=== PATIENT | female | born 1965 | race Caucasian/White ===

== ENCOUNTER → 2017-12-30 | Outpatient (CLI) | payer OTHER ==
--- NOTE | 2017-12-30 13:23 | KCIC ---
MRI Cervical Spine Without Contrast History: Cervical radiculopathy for about 1.5 weeks, numbness in the right arm, abnormal CT Technique: Multiplanar, multi sequential noncontrast MR imaging was performed of the cervical spine. Comparison: None other than CT cervical spine exam January 08, 2018 Findings: There is again fairly advanced degenerative disc disease at C5-C6 and to a somewhat lesser degree at C4-5 and C6-7. There is mild reversal of the lordotic curvature centered about C5. There is again minimal grade 1 anterior spondylolisthesis at C4-C5, C7-T1, and T1-T2. Cervical cord caliber is within normal limits without focal signal abnormality. There is mild C5-C6 endplate edema. There is no significant abnormality of the cervical medullary junction. C2-C3: Spinal canal and neural foramina are adequate. C3-C4: Neural foramina and spinal canal are adequate. There is bilateral facet degenerative change somewhat greater on the left. C4-C5: There is fairly severe facet degenerative change greater on the right. There is minimal disc osteophyte complex. The central canal is borderline about 10 mm. There is uncovertebral degenerative change greater on the right. There is severe right and moderate left neural foramina compromise. C5-C6: There is broad posterior disc osteophyte complex and bulge, central canal minimally narrowed to about 9 to 10 mm also with mild lateral recess stenosis somewhat greater on the right. There is uncovertebral degenerative change bilaterally, also facet degenerative change. There is severe neural foramina compromise bilaterally. C6-C7: There is minimal disc osteophyte complex. Central canal is adequate about 11 mm. There is minimal uncovertebral degenerative change, also bilateral facet degenerative change. There is very mild narrowing of the left neural foramen, right neural foramen adequate. C7-T1: Spinal canal and neural foramina are adequate. Impression: 1. There is more advanced degenerative disc disease at C5-C6 and to a somewhat lesser degree C4-5 and C6-7 with spondylosis at the same levels. There is mild spinal stenosis C5-C6. 2. Uncovertebral and facet degenerative change contributes to more significant neural foramina compromise bilaterally at C5-C6 and right greater than left at C4-C5. 3. There is minimal grade 1 anterior spondylolisthesis C4-5, C7-T1, T1-T2. There is multilevel facet degenerative change. Electronically signed by: Aurelio Cortes MD (12/30/2017 1:20 PM) [facility]
== END | disposition home or self-care (01) ==
LOC: KCIC MRI 12:27
PROVIDERS: ATTEND Internal Medicine
DX: M50.323 Other cervical disc degeneration at C6-C7 level (principal); M47.892 Other spondylosis, cervical region; M48.02 Spinal stenosis, cervical region; M43.13 Spondylolisthesis, cervicothoracic region; M25.78 Osteophyte, vertebrae
CPT/HCPCS: 72141

== ENCOUNTER → 2018-01-30 | Outpatient (CLI) | payer OTHER ==
[~2018-01-30] MED LIST: ALPR0.5T PO; ARIP5TAB13 PO; DEXT10TA23 PO; DULO60CA6 PO; IOHEXOL 180 MG/ML 10 ML VIAL. ONE; LIDOCAINE 1% PF 2 ML VIAL. ONE; MIRT15TA PO; NAPR220C4 PO; methylPREDNISolone ACETATE 40 MG/ML VIAL. ONE; methylPREDNISolone ACETATE 80 MG/ML VIAL. ONE
--- NOTE | 2018-01-30 16:08 | PAIN ---
DATE OF SERVICE: 01/30/2018 INITIAL CONSULTATION FOR PAIN CLINIC CHIEF COMPLAINT: Neck and right upper extremity pain. HISTORY OF PRESENT ILLNESS: This is a 52-year-old female who presents with history of pain in the patient's neck and right shoulder without any specific injury or accident, just woke up numb with it in December of this year with difficulty moving the arm. The patient reports it has gotten better since then, but still having significant pain in the right upper extremity as well as the base of the neck after some therapeutic exercises got slightly better. The patient reports still significant in the neck, also dropping things with the right hand. The right is her dominant hand. The patient reports no specific injury or action that she is aware of. Describes the pain as constant, changing, tingling and numbness, radiating to the right hand and arm as well as a cold sensation in the right hand. The patient reports it wakes her from sleep about 2-3 times a night, does not affect her bowel or bladder control or ability to walk or get around, but at work is having difficulty writing as well as doing fine motor functions with the right hand. The patient did have an MRI of the cervical spine showing more advanced degenerative disk disease C5-C6 and is somewhat lesser degree C4-C5 and C6-C7 with spondylosis at the same levels, mild spinal stenosis C5-C6, degenerative changes, more significant neural foraminal compromise bilaterally at C5-C6 and right greater than left at C4-C5. The patient rates her disability rating from 0 to 10, 10 being the worst, is a 6 with family and home responsibilities and recreation, 4 with social activity, occupation, 3 with sexual behavior, self care and life support activities. The patient reports no loss of motor function completely, but significant fatigability, once again in the right upper extremity with most all motion, especially fine motor. PAST MEDICAL HISTORY: Significant for hearing loss in the right ear, gastroesophageal reflux, difficulty swallowing, depression, anxiety, attention deficit disorder. PREVIOUS SURGERY: Includes tubal in 1992, right breast biopsy and LASIK procedure in 2000. CURRENT MEDICATIONS: Include Xanax, Remeron, Abilify, Cymbalta, Adderall and Aleve. ALLERGIES: The patient has no known drug allergies. FAMILY HISTORY: Significant for lymphoma, coronary artery disease, hypertension, depression, anxiety. SOCIAL HISTORY: The patient drinks about 2-3 drinks a week on average, does not smoke, does not use any illegal, illicit or recreational drugs. 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 REVIEW OF SYSTEMS: The patient's review of systems is positive for those items mentioned in history of present illness. All systems reviewed, is negative. It is complete, full and well documented on the patient's chart. PHYSICAL EXAMINATION: VITAL SIGNS: The patient's blood pressure 146/99, pulse 76, respirations 16, temperature 98.1 degrees Fahrenheit, height is 5 feet 5 inches, weight 162 pounds. GENERAL: The patient is awake, alert, oriented, appropriate, very pleasant demeanor. HEENT: Head shows normocephalic, atraumatic. Extraocular movements intact and symmetrical. Oral cavity: Mucous membranes moist and pink. Dentition is intact. NECK: Shows anterior throat supple without palpable lymphadenopathy noted. Swallow reflex symmetrical. CHEST: Shows normal with inspection. Breath sounds are clear to auscultation bilaterally. HEART: Shows S1, S2 clear. No murmurs auscultated. ABDOMEN: Soft, nontender, nondistended. No palpable organomegaly is noted. No rebound or guarding demonstrated. BACK: Shows spine grossly in the midline, normal-appearing cervical lordotic curvature, thoracic kyphotic curvature. Cervical paraspinous muscle shows symmetrical on inspection, with palpation shows some moderate tenderness only diffusely in the inferior aspect of the cervical paraspinous muscles bilaterally, slightly worse on the right than the left and the superior medial trapezius, without trigger points, no radiation. The patient has full rotational motion of cervical spine, both laterally greater than 45 degrees right and left, closer to 90 degrees as well as full extension, full forward flexion without significant pain reported. The patient's upper extremities show deep tendon reflexes at 2+ in the biceps, triceps tendons. Motor exam is approximately 4 on a scale of 5 with right rickshaw driver and 5/5 on the left. Bicep and tricep flexion again 4/5 right, 5/5 on the left. Peripheral pulses are 2+ radial distribution. No peripheral edema is noted. Upper extremities are warm and dry to touch, equal in color and appearance. Shoulder shrug is strong and intact without loss of strength or resistance, some mild pain reported in the base of the neck and shoulder on the right side with resistance. This is true with abduction of the shoulders at 90 degrees as well, again without loss of strength, but with pain reported on the right only. IMPRESSION: 1. This is a 52-year-old female with approximately 2-month history of neck pain, right upper extremity pain in a radicular fashion. 2. MRI scan of cervical spine as noted. 3. Depression and anxiety history. 4. Gastroesophageal reflux. PLAN: Options were discussed with the patient including conservative medical management, physical therapy, interventional techniques. She does some stretching and therapies on her own. She would like to pursue interventional techniques. We discussed cervical epidural steroid injection using description as well as anatomic models to describe the procedure. Risks were then discussed including, but not limited to bleeding, infection, possibility of epidural hematoma and subsequent neurological compromise, dural puncture, headaches, spinal cord and/or nerve damage, side effects of steroid medication and poor results regarding pain control. The patient understands and wished to proceed. The patient to return to clinic in approximately 2 weeks for followup, was counseled on return appointment, activity level and side effects to be aware of. DIAGNOSES: Cervical radiculopathy, cervical spinal stenosis and cervical degenerative disk disease. PROCEDURE: Cervical epidural steroid injection, translaminar approach C6-C7 level using C-arm fluoroscopic guidance under sterile prep and drape using local anesthetic. MEDICATIONS INJECTED: A total of 120 mg Depo-Medrol, plus 5 mL of preservative free normal saline, 2 mL Isovue for contrast. CONDITION AT DISCHARGE: Stable. The patient tolerated the procedure well, had no complications. GISSEL RICHARDSON MD DR: IRADIA/corine JOB#: [id number] / [id number] JERAMY Burgess MD
== END | disposition home or self-care (01) ==
LOC: PNCL 08:01
PROVIDERS: ATTEND Anesthesiology
DX: M50.123 Cervical disc disorder at C6-C7 level with radiculopathy (principal); M48.02 Spinal stenosis, cervical region; F41.9 Anxiety disorder, unspecified; F32.9 Major depressive disorder, single episode, unspecified; K21.9 Gastro-esophageal reflux disease without esophagitis; H91.91 Unspecified hearing loss, right ear; F98.8 Other specified behavioral and emotional disorders with onset usually occurring in childhood and adolescence; Z98.890 Other specified postprocedural states; Z79.899 Other long term (current) drug therapy; Z82.49 Family history of ischemic heart disease and other diseases of the circulatory system; Z81.8 Family history of other mental and behavioral disorders; Z72.89 Other problems related to lifestyle
CPT/HCPCS: 62321; J1030; J1040; Q9965

== ENCOUNTER → 2018-02-27 | Outpatient (CLI) | payer OTHER ==
[~2018-02-27] MED LIST changes: +LEVO50TA5 PO; -LIDOCAINE 1% PF 2 ML VIAL. ONE
--- NOTE | 2018-02-27 21:02 | PAIN ---
DATE OF SERVICE: 02/27/2018 PROGRESS NOTE FOR PAIN CLINIC DIAGNOSES: Cervical radiculopathy with cervical degenerative disk disease and cervical spinal stenosis. HISTORY OF PRESENT ILLNESS: The patient is a 52-year-old female who returns for followup status post cervical epidural steroid injection x 1. The patient reports she did very well initially, but the pain is returning now significantly in the face and neck and right upper extremity. The patient reports she was able to travel with better ease and was doing activities at work as well as at home with greater ability and comfort. The patient reports now the pain is returning in the right upper extremity, mostly in the posterior aspect of the shoulder, posterior triceps, medial arm into the medial forearm and into the fingers with aching, dull, tingling sensation, becoming more constant with time. The patient reports no new motor or sensory deficits or other complaints. Reports her pain as a 5 on a scale of 10 at its worst, 3 on average, 3 at its least and is a 3 today. PHYSICAL EXAMINATION: VITAL SIGNS: The patient's blood pressure is 149/95, pulse 81, respirations are 16 and temperature 98.2 degrees Fahrenheit. Weight is 173 pounds. GENERAL: The patient is awake, alert, oriented, appropriate and very pleasant demeanor. HEENT: Shows normocephalic and atraumatic. Extraocular movements are intact and symmetrical. Oral cavity: Mucous membranes are moist and pink. Dentition is intact. NECK: Shows anterior throat supple without palpable lymphadenopathy noted. Swallow reflex symmetrical. CHEST: Shows normal on inspection. Breath sounds clear to auscultation bilaterally. HEART: Shows S1 and S2 clear. No murmurs auscultated. ABDOMEN: Soft, nontender and nondistended. No palpable organomegaly is noted. No rebound or guarding demonstrated. BACK: Shows spine grossly in the midline, normal appearing cervical lordotic curvature, thoracic kyphotic curvature. Cervical paraspinous muscle shows symmetrical on inspection. On palpation shows some moderate tenderness diffusely bilaterally in the middle and lower distribution of the cervical paraspinous musculature without radiation. The patient has good rotational motion both laterally as well as extension and flexion without difficulty. The patient's neck shows good rotational motion both laterally as well as forward flexion, rearward extension, right and left lateral rotation past 45 degrees without significant pain reported. EXTREMITIES: Upper extremities show deep tendon reflexes at 2+ in the biceps, triceps tendons. Motor exam is approximately 4 on a scale of 5 with right food consultant strength and 5/5 on the left. Bicep and tricep flexion likewise 4/5 right, 5/5 on the left. Peripheral pulses are 2+ in the radial distribution bilaterally. Options were discussed with the patient. The patient's old chart was reviewed as well as her current medication regimen updated. Current review of systems updated today as well. We will proceed with a second cervical epidural steroid injection series with fluoroscopic guidance. Risks were again discussed including, but not limited to bleeding, infection, possibility of epidural hematoma and subsequent neurological compromise, dural puncture, headaches, spinal cord and/or nerve damage, side effects of steroid medication and poor results regarding pain control. The patient understands and wished to proceed. The patient will return to the clinic in approximately 2 weeks for followup, was counseled as to return appointment, activity level and side effects to be aware of. DIAGNOSES: Cervical radiculopathy with cervical degenerative disk disease and cervical spinal stenosis. PROCEDURE: Cervical epidural steroid injection, translaminar approach, C6-C7 level using C-arm fluoroscopic guidance under sterile prep and drape using local anesthetic. MEDICATION INJECTED: A total of 120 mg Depo-Medrol plus 5 mL of preservative-free normal saline and 2 mL of Isovue for contrast. CONDITION AT DISCHARGE: Stable. The patient tolerated procedure well and had no complications. GISSEL RICHARDSON MD DR: IRAIDA/corine JOB#: [id number] / [id number]
== END | disposition home or self-care (01) ==
LOC: PNCL 14:21
PROVIDERS: ATTEND Anesthesiology
DX: M50.123 Cervical disc disorder at C6-C7 level with radiculopathy (principal); M48.02 Spinal stenosis, cervical region
CPT/HCPCS: 62321; J1030; J1040; Q9965

== ENCOUNTER → 2018-06-19 | Outpatient (CLI) | payer OTHER ==
[~2018-06-19] MED LIST changes: +BUPR150T15 PO; +DOCU-109 PO; +HYDR-2761 PO; -IOHEXOL 180 MG/ML 10 ML VIAL. ONE; +METH750T2 PO; +MULT1TAB52 PO; +NAPR-695 PO; -methylPREDNISolone ACETATE 40 MG/ML VIAL. ONE; -methylPREDNISolone ACETATE 80 MG/ML VIAL. ONE
[2018-06-19 16:46] LABS: BASO % 1 % (0-3); EOS % 0 % (0-3); HEMATOCRIT 42.5 % (36.0-47.0); HEMOGLOBIN 13.9 g/dL (12.0-15.5); LYMPH # 1.4 x10^3/uL (1.0-4.8); LYMPH % 23 % (24-48); MEAN CORPUSCULAR HEMOGLOBIN 29 pg (25-35); MEAN CORPUSCULAR HGB CONC 33 g/dL (31-37); MEAN CORPUSCULAR VOLUME 90 fL (79-100); MONO # 0.6 x10^3/uL (0.0-1.1); MONO % 10 % (0-9); NEUT # 4.1 x10^3uL (1.8-7.7); NEUT % 67 % (31-73); PLATELET COUNT 187 x10^3/uL (140-400); RED BLOOD COUNT 4.71 x10^6/uL (3.50-5.40); RED CELL DISTRIBUTION WIDTH 13.4 % (11.5-14.5); WHITE BLOOD COUNT 6.1 x10^3/uL (4.0-11.0)
[2018-06-19 17:29] LABS: ALBUMIN 3.5 g/dL (3.4-5.0); CALCIUM 8.7 mg/dL (8.5-10.1); CREATININE 0.8 mg/dL (0.6-1.0); GFR 75.3; TOTAL BILIRUBIN 0.3 mg/dL (0.2-1.0); TOTAL PROTEIN 6.9 g/dL (6.4-8.2)
== END | disposition home or self-care (01) ==
LOC: SURGPAT 13:25
PROVIDERS: ATTEND Neurological Surgery
DX: M48.02 Spinal stenosis, cervical region (principal); M54.12 Radiculopathy, cervical region
CPT/HCPCS: 36415; 80053; 85025; 87641

== ENCOUNTER 2018-06-26 07:01 | Observation (INO) | payer OTHER ==
[~2018-06-26] VITALS: Ht 165.1 cm; Wt 71.2 kg
[2018-06-26] VITALS (11 sets, daily range): BP systolic 109–130; BP diastolic 70–88
[~2018-06-26 07:01] MED LIST changes: +BACITRACIN 50,000 UNIT in IV NORMAL SALINE 1000ML BAG 1,000 ML IRR ONE; +BUPIVAC MPF-EPI 0.5%-1:200000 30 ML VIAL. ONE; +DESFLURANE > 120 MINUTES IH ONE; +DEXAMETHASONE SOD PHOS 20 MG/5 ML VIAL. ONE; -DOCU-109 PO; +GELATIN SPONGE SIZE 100. ONE; -HYDR-2761 PO; +HYDROmorphone 2 MG/ML VIAL IV PRN; +IV RINGERS,LACTATED 1000ML 1,000 ML IV SCH; +LIDOCAINE 1% PF 2 ML VIAL. ID PRN; -METH750T2 PO; +MORPHINE SULFATE 2 MG/ML VIAL. IV PRN; +ONDANSETRON PF 4 MG/2 ML VIAL. IV PRN; +ONDANSETRON PF 4 MG/2 ML VIAL. ONE; +PHENYLEPHRINE 10 MG/ML VIAL. ONE; +PROCHLORPERAZINE 10 MG/2 ML VIAL. IV PRN; +PROPOFOL 20 ML IV ONE; +PROPOFOL 50 ML IV ONE; +REMIFENTANIL 2 MG VIAL. IV ONE; +ROCURONIUM 50 MG/5 ML VIAL. ONE; +THROMBIN TOPICAL 20,000 UNIT SPRAY.SYRN KIT TP ONE; +fentaNYL PF VIAL 100 MCG/2 ML VIAL IV PRN; +fentaNYL PF VIAL 100 MCG/2 ML VIAL ONE
[2018-06-26] MEDS ORDERED: SUCCINYLCHOLINE 200 MG/10 ML VIAL. ONE (07:43)
--- NOTE | 2018-06-26 09:58 | PREOP HP ---
DATE OF SERVICE: 06/26/2018 DATE OF SURGERY: 06/26/2018 HISTORY OF PRESENT ILLNESS: The patient is a pleasant 52-year-old who is having difficulty with neck and right arm pain. She says the pain is in the right side of her neck and radiates into her right shoulder to involve the right arm and right hand. She notes numbness and tingling in her right hand. There is numbness that involves the thumb, index, middle and ring fingers. The problem started in 12/2017 spontaneously. She says her pain is an 8/10 in the mornings and is 3/10 generally. Lying down makes her worse. Using her right arm and hand also increases her pain. She has had some epidural steroid injections without benefit in February and March. She had physical therapy with traction without help. Physical therapy just stopped last week. On the left side, she notes some numbness of her left hand. The right side is much more involved than the left. PAST MEDICAL HISTORY: Head or neck injury, psychiatric care and ulcers. PAST SURGICAL HISTORY: Ectopic in 1982, breast biopsy in 2013, LASIK surgery in 1999. FAMILY HISTORY: Cancer, heart problems and disease, hypertension. SOCIAL HISTORY: Employed as an RN. Exercises weekly. Denies substance abuse. Quit smoking 2 weeks ago. Drinks 1-2 drinks per week. Drinks soda. ALLERGIES: No known drug allergies. CURRENT MEDICATIONS: Adderall, Cymbalta, Xanax, gabapentin, Flexeril, hydrocodone, Skelaxin, prednisone, Aleve, Zyrtec, One A Day vitamin and Zantac. REVIEW OF SYSTEMS: A 12-point review of systems was obtained and is noncontributory except for that mentioned above. PHYSICAL EXAMINATION: NEUROSURGERY EXAMINATION: HEAD: Normocephalic and atraumatic. NECK AND THYROID: [id number] tenderness with palpation of posterior cervical region. SKIN: Warm and dry. MUSCULOSKELETAL: Cervical paraspinal muscle bulk is normal, restricted range of motion of the cervical spine, normal range of motion of the upper extremities bilaterally. EXTREMITIES: No clubbing, cyanosis or edema. NEUROLOGIC: Alert and oriented x 3, normal recent and remote memory. Strength 5/5 in bilateral lower extremities, sensory was intact to light touch in the upper and lower extremities except for decreased involving her right hand and diffusely to light touch. Reflexes are trace and symmetric in the upper and lower extremities bilaterally, normal gait. IMAGING: I reviewed an MRI scan from 12/2017. On that study, there are significant degenerative changes at C5-C6 with lateral recess stenosis and severe neural foraminal narrowing bilaterally. At C4-C5, there is severe right and moderate left-sided neural foraminal narrowing. ASSESSMENT AND PLAN: I believe the problems at C4-C5 and C5-C6 are responsible for a great deal of her arm pain. My recommendation at this point is that she consider surgery. I discussed anterior cervical surgery at C4-C5 and C5-C6. I spoke about the use of interbody fusion cages and anterior plating. I spoke about the technique in detail, expected postoperative course. I outlined the risks and she was well aware of these from her own research. I spoke about paralysis as well as injury to the esophagus and trachea. We also discussed possibility of hoarseness. I spoke about expected postoperative course. She understands. She would like to go ahead. We will make the arrangements. DEUCE JOSE MD DR: RAMONA/corine JOB#: [id number] / [id number] VIKTOR
[2018-06-26] MEDS ORDERED: PROPOFOL 50 ML IV ONE (10:22)
[2018-06-26] MEDS ORDERED: LIDOCAINE 2% PF 5 ML VIAL. ONE (10:23)
[2018-06-26] MEDS ORDERED: POTASSIUM CL 20MEQ D5-0.45NACL 1,000 ML IV SCH (10:55)
[2018-06-26] MEDS ORDERED: ONDANSETRON PF 4 MG/2 ML VIAL. IV PRN (11:00)
[2018-06-26] MEDS ORDERED: ACETAMINOPHEN 325 MG TABLET. PO PRN (11:00)
[2018-06-26] MEDS ORDERED: 0.9 % SODIUM CHLORIDE 10 ML DISP.SYRIN. IV PRN (11:00)
[2018-06-26] MEDS ORDERED: CALCIUM CARBONATE 500 MG TAB.CHEW PO PRN (11:00)
[2018-06-26] MEDS ORDERED: diphenhydrAMINE HCL 25 MG CAPSULE PO PRN (11:00)
[2018-06-26] MEDS: MULTIVITAMIN with MINERAL TABLET. PO SCH (11:00)
[2018-06-26] MEDS: DOCUSATE SODIUM 100 MG CAPSULE. PO SCH ×2 (11:00→21:11)
[2018-06-26] MEDS ORDERED: MAGNESIUM HYDROXIDE 2,400 MG/30 ML ORAL.SUSP. PO PRN (11:00)
[2018-06-26] MEDS ORDERED: ZOLPIDEM 5 MG TABLET. PO PRN (11:00)
[2018-06-26] MEDS ORDERED: MAG HYDROX/ALUMINUM HYD/SIMETH 30 ML ORAL.SUSP PO PRN (11:00)
[2018-06-26] MEDS: DULoxetine HCL 30 MG CAPSULE.DR PO SCH (11:00)
[2018-06-26] MEDS: buPROPion XL 150 MG TAB.ER.24H. PO SCH (11:00)
[2018-06-26] MEDS ORDERED: NALOXONE 0.4 MG/ML VIAL. IV PRN (11:00)
--- NOTE | 2018-06-26 12:15 | OP ---
DATE OF SURGERY: 06/26/2018 PREOPERATIVE DIAGNOSES: Cervical stenosis and foraminal narrowing, C4-C5 and C5-C6 with a right cervical radiculopathy. POSTOPERATIVE DIAGNOSES: Cervical stenosis and foraminal narrowing, C4-C5 and C5-C6 with a right cervical radiculopathy. OPERATION PERFORMED: Anterior cervical microdiscectomy, C4-C5 and C5-C6; anterior cervical interbody fusion, C4-C5 and C5-C6 with interbody fusion cage with allograft and autograft bone and anterior cervical plates, C4, C5 and C6. The operation was done with EMG monitoring, fluoroscopy and microscopic dissection. SURGEON: Arnold Jose M.D. SAFETY INVESTIGATOR: RICHARD Rios, assisted with the surgery. She assisted with the microdecompression and placement of the interbody fusion cages at C4-C5 and C5-C6. OPERATIVE INDICATIONS: The patient is a pleasant 52-year-old who developed intractable neck and right arm pain, which failed conservative measures. On imaging studies, she was found to have lateral recess stenosis and foraminal narrowing at C5-C6 and to a lesser extent at C4-C5 along with an element of stenosis at both of these levels and I recommended a 2-level anterior cervical discectomy and fusion. I spoke to her about the surgery, the risks, the technique and the expected postoperative course and she wished to go ahead. DESCRIPTION OF PROCEDURE: Following general endotracheal anesthesia, the patient was positioned supine on the operating room table. The anterior cervical region was then prepped and draped in standard fashion. SHEA hose and AV impulse boots were applied for DVT prophylaxis. A microscope was draped. Fluoroscopy was draped and brought into the field and monitoring was established, which included EMG, SSEP, NIMS and motor evoked potentials. Fluoroscopy was also brought in as well as the microscope, which was draped and prepared. Using fluoroscopic guidance, an incision was made from the midline around to the right side in a skin crease. I dissected around the medial aspect of the sternocleidomastoid and carotid artery sheath down the anterior cervical vertebral body and reflected the trachea and esophagus contralaterally. I placed a [place] micro disc retractor with the retractors wedged in the longus colli muscle. There was a narrow space anteriorly, but I was able to move the muscle slightly laterally and obtain adequate exposure. I began at C5-C6 and confirmed my positions. Then, I placed 14-mm pins in C5 and C6 and incised the anterior annulus again through the microscope under microscopic technique and distracted it after incising with a #11 blade. I distracted and then performed a discectomy with pituitary rongeurs. As I worked, the region became well decompressed. I drilled the posterior spurring and the anterior spurring and I saved this bone to mix with the allograft bone for the fusion. I had excellent hemostasis. I removed the very thickened posterior annulus and ligament. Then, I made sure the foramina were open. I placed a 6-mm interbody fusion cage, which was packed with allograft and autograft bone, after I assured myself of perfect hemostasis and placed small pieces of Gelfoam in each lateral gutter. I then removed the pin from C6 and removed the retractor at C4-C5, placed a pin in C4, distracted the disc space and I then performed the identical operation at C4-C5. At this level, there was considerable arthritic change. I again drilled the posterior spurring and opened laterally bilaterally. I was easily able to pass a blunt hook out laterally. I measured and placed a 6 mm interbody fusion cage, which was packed with allograft and autograft bone after I assured myself of perfect hemostasis. Once this was in position, I placed an anterior plate using the Spinal Element System. I placed 12-mm screws. Superior and inferior screws were placed first, followed by the remaining screws. I did use a rescue screw on the left side at C4, but there was no significant difficulty with placement of the plate. Once the plate was down, I took films and felt that the positioning was satisfactory. I irrigated copiously. Hemostasis was excellent. I removed the retractors and explored carefully. The motor-evoked potentials were excellent and in fact improved. I then irrigated further, again assured myself of perfect hemostasis and did Valsalva the patient without any difficulty and then I closed the platysma with separate layer. I then closed the wound in layers with absorbable suture. The skin was closed with 4-0 subcuticular stitch. The operation went very well. I was quite pleased with the surgery. ARNOLD JOSE MD DR: RAMONA/corine JOB#: [id number] / [id number] VIKTOR
[2018-06-26] MEDS: fentaNYL PF VIAL 100 MCG/2 ML VIAL IV PRN ×2 (13:06→19:31)
[2018-06-26] MEDS: LEVOTHYROXINE 50 MCG TABLET PO SCH (15:30)
[2018-06-26] MEDS: ceFAZolin SODIUM 1 GM in IV DEXTROSE 5% 50 ML IV SCH (16:54)
[2018-06-26] MEDS: HYDROcodone/APAP 5/325MG 1 TAB TABLET PO PRN ×2 (16:57→23:09)
[2018-06-26] MEDS ORDERED: ALPRAZolam 0.5 MG TABLET PO SCH (21:00)
[2018-06-26] MEDS: METHOCARBAMOL 750 MG TABLET PO PRN (21:13)
[2018-06-27] MEDS: ceFAZolin SODIUM 1 GM in IV DEXTROSE 5% 50 ML IV SCH ×2 (02:15→08:55)
[2018-06-27 02:54] VITALS: BP 102/63
[2018-06-27] MEDS: LEVOTHYROXINE 50 MCG TABLET PO SCH (06:21)
[2018-06-27] MEDS: HYDROcodone/APAP 5/325MG 1 TAB TABLET PO PRN ×4 (06:22→10:50)
[2018-06-27 06:31] VITALS: BP 124/86
[2018-06-27] MEDS ORDERED: BENZOCAINE/MENTHOL LOZENGE. PO PRN (07:45)
[2018-06-27] MEDS: buPROPion XL 150 MG TAB.ER.24H. PO SCH (08:06)
[2018-06-27] MEDS: DULoxetine HCL 30 MG CAPSULE.DR PO SCH (08:06)
[2018-06-27] MEDS: DOCUSATE SODIUM 100 MG CAPSULE. PO SCH (08:06)
[2018-06-27] MEDS: MULTIVITAMIN with MINERAL TABLET. PO SCH (08:55)
[2018-06-27] MEDS ORDERED: NON FORMULARY ITEM (Dextroamphetamine/Amphetamine (Adderall 10 Mg Tablet) 10 MG) PO SCH (09:00)
--- NOTE | 2018-06-27 09:45 | DISCH ---
DISCHARGE INSTRUCTIONS Condition on Discharge Condition on Discharge: Stable Activity After Discharge Activity Instructions for Disc: Activity as tolerated, Avoid exertion, Walk in house Other activity instructions: AMBULATION IS THE ONLY EXERCISE PERMITTED; GRAD INCREASE TIME AND DISTANCE Bathing Instructions: Shower-keep dressing dry, No Tub Bath until see Lifting Instructions after Dis: No heavy lifting, No pulling or pushing, Do not lift >10 pounds Exercise Instruction after Dis: Progress as tolerated Driving Instructions after Dis: No driving for 2 weeks Weight Bearing Status after Di: No restrictions Diet after Discharge Diet after Discharge: Regular Additional Diet Restrictions: resume home diet Diet Texture: Regular Liquid Texture: Thin Liquid Swallowing Supervision: None needed Wound Incision Care Wound/Incision Care: Ice to area for comfort, Keep wound/cast CDI, Change dressing Other wound/incision instructi: MAY REMOVE DRESSING AFTER SHOWER; NO DIRECT WATER, TUB BATHS, HOT TUBS SWIM Wound Care Equipment: Dressings Checks after Discharge DC Comment: INCREASE FRUITS, VEGETABLES AND FIBER; ATTEMPT bm Q 2-3 DAYS Contacting the DRChristoph after DC Call your doctor for: Concerns you may have Follow-Up Follow Up With: CALL [phone] FOR A 2 W[address] POST APPT WITH DR. JOSE/ ABHISHEK Treatment/Equipment after DC Adaptive Equipment Issued: None Comment: NO ANTIBIOTIC CREAM/OINTMENT TO INCISION DEUCE JOSE MD Jun 27, 2018 09:45
[2018-06-27] MEDS ORDERED: DOCU-109 PO (09:49)
[2018-06-27] MEDS ORDERED: HYDR-2761 PO (09:49)
[2018-06-27] MEDS ORDERED: METH750T2 PO (09:49)
[2018-06-27 10:45] VITALS: BP 129/86
[2018-06-27] MEDS: METHOCARBAMOL 750 MG TABLET PO PRN (10:48)
--- NOTE | 2018-06-27 12:31 | DS ---
DATE OF DISCHARGE: 06/27/2018 DISCHARGE DIAGNOSES: Cervical stenosis and foraminal narrowing, C4-C5 and C5-C6 with right cervical radiculopathy. OPERATION PERFORMED: ACDF C4-C5, C5-C6. HISTORY OF PRESENT ILLNESS: The patient is a pleasant 52-year-old who developed intractable neck and right arm pain, which failed to improve with conservative measures. On imaging studies, she was found to have lateral recess stenosis and foraminal narrowing at C5-C6 and to a lesser extent at C4-C5 along with an element of stenosis at both of these levels. I have recommended a 2-level anterior cervical diskectomy and fusion. She understood the surgery, the risk and the expected postoperative course and wished to proceed. HOSPITAL COURSE: She was admitted to the floor postoperatively where she did well. She was up ambulating in the room and in the halls. Physical therapy was initiated and instruction was given her regarding her activities. She has noted significant improvement in her right upper extremity symptoms. Her voice is clear. Her pain is well controlled. She is at good condition to discharge home. DISCHARGE MEDICATIONS: She will resume her medications per the MRAD. DISCHARGE INSTRUCTIONS: She was instructed regarding incision care, activity restrictions and expectations for the next several weeks. She will follow up in our office in 2 weeks. She understands to call with any questions or concerns. DEUCE JOSE MD DR: MANSI/corine JOB#: [id number] / [id number]
--- NOTE | 2018-06-28 09:09 | PATHOLOGY ---
[facility] Accession Number: [id number] . 01 Material submitted: . CERVICAL DISC . 01 Clinical history: . Cervical stenosis, radiculopathy . 02 Diagnosis: Segments of fibrocartilaginous tissue and bone, cervical disc: - Degenerative changes of fibrocartilaginous tissue. (JPM:manager animal; 06/27/2018) MBR/06/27/2018 . 02 Comment: There is no evidence of an acute inflammatory process or malignancy. (JPM:manager animal; 06/27/2018) . 02 Electronically signed: . Manpreet Bejarano MD, Pathologist NPI- [id number] . 01 Gross description: . Received in formalin labeled "Ernestina Flores, cervical disc," are several pieces of glistening, fibrous tissue measuring 2.5 x 1.3 x 0.6 cm in aggregate dimensions, containing small fragments of possible bone. The specimen is filtered and entirely submitted cassette A1, following decalcification. (TSD; 06/26/2018) TOB/TOB . 02 Pathologist provided ICD-10: M50.30 . 02 CPT . 732353, [id number] Specimen Comment: A courtesy copy of this report has been sent to Specimen Comment: [phone], . Specimen Comment: Report sent to / DR BELL Specimen Comment: A duplicate report has been generated due to demographic updates. Performed at: 01 [facility] [address], [place] [id number] MD Ld Martel MD Phone: [phone] Performed at: 02 [facility] [address], [place] [id number] MD Manpreet Bejarano MD Phone: [phone]
== END 2018-06-27 11:06 | disposition home or self-care (01) ==
LOC: SURG 07:01 → 4 SOUTHEST 12:20
PROVIDERS: ADMIT Neurological Surgery; ATTEND Neurological Surgery
DX: M54.12 Radiculopathy, cervical region (principal); Z82.49 Family history of ischemic heart disease and other diseases of the circulatory system; M48.02 Spinal stenosis, cervical region
CPT/HCPCS: 22551; 22552; 22853; 76000; 88304; 88311; 96365; 96366; 96375; 96376; 97162; 97530; C1713; G0378; G0379; G8978; G8979; G8980; J0330; J0690; J1100; J2001; J2405; J2704; J3010; J3490; J7030; J7120; Q0163

== ENCOUNTER → 2019-07-16 | Outpatient (CLI) | payer OTHER ==
[~2019-07-16] MED LIST changes: -BACITRACIN 50,000 UNIT in IV NORMAL SALINE 1000ML BAG 1,000 ML IRR ONE; -BUPIVAC MPF-EPI 0.5%-1:200000 30 ML VIAL. ONE; -DESFLURANE > 120 MINUTES IH ONE; -DEXAMETHASONE SOD PHOS 20 MG/5 ML VIAL. ONE; +DOCU-109 PO; -GELATIN SPONGE SIZE 100. ONE; +HYDR-2761 PO; -HYDROmorphone 2 MG/ML VIAL IV PRN; -IV RINGERS,LACTATED 1000ML 1,000 ML IV SCH; -LIDOCAINE 1% PF 2 ML VIAL. ID PRN; +METH750T2 PO; -MORPHINE SULFATE 2 MG/ML VIAL. IV PRN; -ONDANSETRON PF 4 MG/2 ML VIAL. IV PRN; -ONDANSETRON PF 4 MG/2 ML VIAL. ONE; -PHENYLEPHRINE 10 MG/ML VIAL. ONE; -PROCHLORPERAZINE 10 MG/2 ML VIAL. IV PRN; -PROPOFOL 20 ML IV ONE; -PROPOFOL 50 ML IV ONE; -REMIFENTANIL 2 MG VIAL. IV ONE; -ROCURONIUM 50 MG/5 ML VIAL. ONE; -THROMBIN TOPICAL 20,000 UNIT SPRAY.SYRN KIT TP ONE; -fentaNYL PF VIAL 100 MCG/2 ML VIAL IV PRN; -fentaNYL PF VIAL 100 MCG/2 ML VIAL ONE
== END ==
LOC: LAB 13:41
PROVIDERS: ATTEND Internal Medicine Pulmonary Disease
DX: Z20.828 Contact with and (suspected) exposure to other viral communicable diseases (principal)
CPT/HCPCS: 36415; 99001; U0001

== ENCOUNTER 2019-08-24 09:47 | Observation (INO) | payer OTHER ==
[~2019-08-24] VITALS: Ht 165.1 cm; Wt 73.0 kg
[2019-08-24] MEDS ORDERED: IV NORMAL SALINE 1000ML BAG 1,000 ML IV ONE (10:08)
--- NOTE | 2019-08-24 10:14 | PHYS DOC ---
Past Medical History Past Medical History: Anxiety, Depression, Hypertension, Hypothyroid, Other Additional Past Medical Histor: ADD Past Surgical History: Other Additional Past Surgical Histo: ANTERIOR CERVICAL DISSECTION,TUBAL Smoking Status: Former Smoker Alcohol Use: Occasionally General Adult EDM: Chief Complaint: HEADACHE HPI: HPI: PPE Statement: During the patient's care I used an N95 mask, gloves, and face sheild. Patient is a 53 year old F who presents with headache. She reports her headache started on Tuesday. It took greater than 2 hours to become maximal in intensity. It was not sudden in onset. She denies a family history of subarachnoid hemorrhage or brain aneurysms. She developed a temperature yesterday. She was seen by a nurse practitioner in clinic at [facility] who ordered some blood work and discharged her. Her headache comes and goes. No alleviating or exacerbating factors. She took intramuscular Toradol yesterday in clinic which did not seem to alleviate her pain. She has had some neck stiffness. She has a history of neck surgeries but describes neck stiffness that is different and new. Review of systems negative for rash vision changes cough shortness of breath abdominal pain vomiting. All other review of systems negative. ED course: 53-year-old female presented emergency department today with headache and neck stiffness. She reported a fever yesterday but here is afebrile. Head CT is unremarkable. Blood work is unremarkable. Lumbar puncture performed. CSF is clear. CSF findings suggestive of viral meningitis. I initially had ordered acyclovir and sent to HSV test however Dr. Billings asked that I canceled the HSV test and do not get acyclovir given the patient does not have signs or symptoms of encephalitis. We will admit the patient for observation to doctor Jaye hospitalist for further treatment and care. Heart Score: Risk Factors: Risk Factors: DM, Current or recent (<one month) smoker, HTN, HLP, family history of CAD, obesity. Risk Scores: Score 0 - 3: 2.5% MACE over next 6 weeks - Discharge Home Score 4 - 6: 20.3% MACE over next 6 weeks - Admit for Clinical Observation Score 7 - 10: 72.7% MACE over next 6 weeks - Early Invasive Strategies Allergies: Allergies: Allergies Coded Allergies Type Severity Reaction Last Updated Verified No Known Drug Allergies 01/30/18 No Physical Exam: PE: Constitutional: Well developed, well nourished, no acute distress, non-toxic appearance. [] HENT: Normocephalic, atraumatic, bilateral external ears normal, oropharynx moist, no oral exudates, nose normal. [] Eyes: PERRLA, EOMI, conjunctiva normal, no discharge. [] Neck: Patient is able to move her chin to her shoulder bilaterally and reports this is less so than normally. She is able to look up and look down without clear nuchal rigidity. Cardiovascular:Heart rate regular rhythm, no murmur [] Lungs & Thorax: Bilateral breath sounds clear to auscultation [] Abdomen: Bowel sounds normal, soft, no tenderness, no masses, no pulsatile masses. [] Skin: Warm, dry, no erythema, no rash. [] Back: No tenderness, no CVA tenderness. [] Extremities: No tenderness, no cyanosis, no clubbing, ROM intact, no edema. [] Neurologic: Alert and oriented X 3, normal motor function, normal sensory function, no focal deficits noted. [] Psychologic: Affect normal, judgement normal, mood normal. [] Current Patient Data: Vital Signs: Vital Signs Date Time Temp Pulse Resp B/P (MAP) Pulse Ox O2 Delivery O2 Flow Rate FiO2 08/24/19 09:52 99.0 100 18 175/81 (112) 99 Room Air 99.0 EKG: EKG: [] Radiology/Procedures: Radiology/Procedures: [] Course & Med Decision Making: Course & Med Decision Making Pertinent Labs and Imaging studies reviewed. (See chart for details) [] Dragon Disclaimer: Dragon Disclaimer: This electronic medical record was generated, in whole or in part, using a voice recognition dictation system. Departure Departure Impression: Primary Impression: Headache Additional Impression: Viral meningitis Disposition: ADMITTED INPATIENT Admitting Physician: HIMMehdi Condition: STABLE Referrals: FORREST ALDRIDGE MD (PCP) Lumbar Puncture Lumbar Indication: possible meningitis Consent: Consent was obtained Procedure: The patient was placed in the right lateral decubitus position and the appropriate landmarks were identified. The area was prepped and draped in the usual sterile fashion. Anesthesia was obtained using 1 % lido. A spinal needle was inserted at the L4/L5. Opening pressure was 26. The stylet was then replaced and the needle was withdrawn. A sterile dressing was placed over the site and the patient was placed in the supine position. The patient tolerated the procedure well. Complications: none. ESMER WILD MD August 24, 2019 10:14
[2019-08-24] MEDS ORDERED: METOCLOPRAMIDE 10 MG TABLET. PO ONE (10:15)
[2019-08-24] MEDS ORDERED: diphenhydrAMINE 50 MG/ML VIAL IVP ONE (10:15)
[2019-08-24 10:37] LABS: CALCIUM 8.9 mg/dL (8.5-10.1); CREATININE 0.9 mg/dL (0.6-1.0); GFR 65.5; POTASSIUM 3.6 mmol/L (3.5-5.1)
[2019-08-24 10:42] LABS: ALBUMIN 3.8 g/dL (3.4-5.0); ALBUMIN/GLOBULIN RATIO 1.2 (1.0-1.7); TOTAL BILIRUBIN 0.4 mg/dL (0.2-1.0); TOTAL PROTEIN 6.9 g/dL (6.4-8.2)
[2019-08-24 10:43] LABS: BILIRUBIN,URINE NEGATIVE (NEG); CLARITY,URINE CLEAR; COLOR,URINE YELLOW; NITRITE,URINE NEGATIVE (NEG); PH,URINE 7.5 (<5.0-8.0); PROTEIN,URINE NEGATIVE (NEG-TRACE); UROBILINOGEN,URINE 0.2 mg/dL (0.2 mg/dL)
--- NOTE | 2019-08-24 10:51 | RAD ---
CT HEAD WO CONTRAST History: Headache Comparison: None. Technique: Noncontrast CT imaging was performed of the head. Exposure: One or more of the following individualized dose reduction techniques were utilized for this examination: 1. Automated exposure control 2. Adjustment of the mA and/or kV according to patient size 3. Use of iterative reconstruction technique. Findings: No intracranial hemorrhage. No mass effect. No hydrocephalus. Extra-axial spaces are unremarkable. Imaged orbits are unremarkable. Imaged paranasal sinuses and mastoid air cells are clear. No acute calvarial fracture. Impression: 1. No acute intracranial abnormality. Electronically signed by: Syd Bloom DO (08/24/2019 10:48 AM) [id number]
[2019-08-24 10:52] LABS: PREG TEST PT QUAL NEGATIVE (NEG)
[2019-08-24 11:05] LABS: BACTERIA,URINE FEW /HPF (0-FEW); RBC,URINE 0 /HPF (0-2); SQUAMOUS EPITHELIAL CELL,UR MANY /LPF
[2019-08-24 11:16] LABS: BASO % 1 % (0-3); EOS # 0.1 x10^3/uL (0.0-0.7); EOS % 1 % (0-3); HEMOGLOBIN 13.6 g/dL (12.0-15.5); LYMPH # 1.4 x10^3/uL (1.0-4.8); LYMPH % 19 % (24-48); MEAN CORPUSCULAR HEMOGLOBIN 29 pg (25-35); MEAN CORPUSCULAR HGB CONC 33 g/dL (31-37); MEAN CORPUSCULAR VOLUME 89 fL (79-100); MONO # 0.6 x10^3/uL (0.0-1.1); MONO % 8 % (0-9); NEUT # 5.6 x10^3/uL (1.8-7.7); NEUT % 73 % (31-73); PLATELET COUNT 197 x10^3/uL (140-400); RED BLOOD COUNT 4.75 x10^6/uL (3.50-5.40); RED CELL DISTRIBUTION WIDTH 14.2 % (11.5-14.5); WHITE BLOOD COUNT 7.6 x10^3/uL (4.0-11.0)
[2019-08-24] MEDS ORDERED: CYCLOBENZAPRINE 10 MG TABLET. PO ONE (12:45)
[2019-08-24 12:53] LABS: CSF PROTEIN 123.4 mg/dL (15.0-45.0)
[2019-08-24 13:25] LABS: CSF CLARITY CLEAR; CSF COLOR COLORLESS; CSF MON % 98 %; CSF PMN % 2 %; CSF RBC COUNT 3 /cmm (Not Established); CSF WBC COUNT 328 /cmm (Not Established)
[2019-08-24] MEDS ORDERED: IV NORMAL SALINE 1000ML BAG 1,000 ML IV SCH (14:15)
[2019-08-24] MEDS ORDERED: DOCUSATE SODIUM 100 MG CAPSULE. PO PRN (14:30)
[2019-08-24] MEDS ORDERED: MAG HYDROX/ALUMINUM HYD/SIMETH 30 ML ORAL.SUSP PO PRN (14:30)
[2019-08-24] MEDS ORDERED: ACETAMINOPHEN 650 MG/20.3 ML SOLUTION. GT PRN (14:30)
--- NOTE | 2019-08-24 14:44 | PDOC1 ---
History and Physical Date of Admission Date of Admission DATE: 08/24/19 TIME: 14:31 Identification/Chief Complaint Chief Complaint headache, fever Problems: (1) Cervical radiculopathy (2) Headache Source Source: Chart review, Patient History of Present Illness History of Present Illness Very pleasant 53 year old CF with hx off HTN previously on norvasc but not taking, hx of depression, not on meds per patient report, cervical stenosis s/p anterior cervical discectomy and fusion who reports headache since 36 hrs with fever of 101 yesterday. reports headache mostly posterior and travels down her neck with stiffness. no family hx of SAH or brain aneurysim. seen at [facility] by DINING ROOM MANAGER who discharged her yesterday after toradol. no improvement in headache so came to ED. denies any recent travel. no rashes or joint pain. denies any neurological deficits. no change in vision. no sensitivity to light. patient had LP done in ED. CSF protein [address] head negative. labs otherwise normal. Past Medical History Past Medical History HTN and depression not on meds. Past Surgical History Past Surgical History cervical stenosis s/p anterior cervical discectomy and fusion, Family History Family History reviewed and denies Social History Smoke: No ALCOHOL: none Drugs: None Current Problem List Problem List Problems Medical Problems: (1) Headache Status: Acute Current Medications Current Medications Current Medications Metoclopramide HCl (Reglan) 10 mg 1X ONCE PO Last administered on 08/24/19at 10:35; Start 08/24/19 at 10:15; Stop 08/24/19 at 10:16; Status DC Diphenhydramine HCl (Benadryl) 25 mg 1X ONCE IVP Last administered on 08/24/19a t 10:35; Start 08/24/19 at 10:15; Stop 08/24/19 at 10:16; Status DC Sodium Chloride 1,000 ml @ 1,000 mls/hr Q1H ONCE IV Last administered on 08/24/19at 10:35; Start 08/24/19 at 10:08; Stop 08/24/19 at 11:07; Status DC Cyclobenzaprine HCl (Flexeril) 10 mg 1X ONCE PO Last administered on 08/24/19at 12:51; Start 08/24/19 at 12:45; Stop 08/24/19 at 12:46; Status DC Acyclovir Sodium 575 mg/Dextrose 111.5 ml @ 111.5 mls/ hr Q8HRS IV ; Start 08/24/19 at 15:00 Sodium Chloride 1,000 ml @ 100 mls/hr Q10H IV ; Start 08/24/19 at 14:15; Stop 08/24/19 at 18:14; Status UNV Active Scripts Active Hydrocodone-Apap 5-325 (Hydrocodone Bit/Acetaminophen) 1 Tab Tablet 1 Tab PO PRN Q4HRS PRN Methocarbamol 750 Mg Tablet 750 Mg PO TID PRN PRN Colace (Docusate Sodium) 100 Mg Capsule 100 Mg PO BID Reported Wellbutrin Xl (Bupropion Hcl) 150 Mg Tab.er.24h 150 Mg PO DAILY Multivitamins (Multivitamin) 1 Each Tablet 1 Each PO DAILY Levothyroxine Sodium 50 Mcg Tablet 1 Tab PO DAILY Xanax (Alprazolam) 0.5 Mg Tablet 1 Tab PO HS Adderall 10 Mg Tablet (Dextroamphetamine/Amphetamine) 10 Mg Tablet 10 Mg PO DAILY Cymbalta (Duloxetine Hcl) 60 Mg Capsule.dr 60 Mg PO DAILY Allergies Allergies: Coded Allergies: No Known Drug Allergies (Unverified , 01/30/18) ROS Review of System CONSTITUTIONAL: No fever or chills EYES: No recent changes SKIN: No rash or itching CARDIOVASCULAR: No chest pain, syncope, palpitations, or edema RESPIRATORY: No SOB or cough GASTROINTESTINAL: No nausea, vomiting or abdominal pain NEUROLOGICAL: No headaches or weakness ENDOCRINE: No cold or heat intolerance GENITOURINARY: No urgency or frequency of urination MUSCULOSKELETAL: No back pain or joint pain LYMPHATICS: No enlarged lymph nodes PSYCHIATRIC: No anxiety or depression Physical Exam Physical Exam GENERAL: No apparent distress. Alert and oriented. HEENT: Head normocephalic, atraumatic. NECK: Supple LUNGS: Clear to auscultation. HEART: RRR, S1, S2 present, pulses intact ABDOMEN: Soft, positive bowel sounds. EXTREMITIES: No cyanosis or edema. NEUROLOGIC: Normal speech, normal tone PSYCHIATRIC: Normal affect, normal mood. SKIN: No ulceration. Vitals Vitals Vital Signs Date Time Temp Pulse Resp B/P (MAP) Pulse Ox O2 Delivery O2 Flow Rate FiO2 08/24/19 13:54 78 145/79 (101) 99 Room Air 08/24/19 09:52 99.0 18 99.0 Labs Labs Laboratory Tests Test 08/24/19 10:14 08/24/19 10:22 08/24/19 10:29 08/24/19 12:27 White Blood Count 7.6 x10^3/uL (4.0-11.0) Red Blood Count 4.75 x10^6/uL (3.50-5.40) Hemoglobin 13.6 g/dL (12.0-15.5) Hematocrit 42.0 % (36.0-47.0) Mean Corpuscular Volume 89 fL (79-100) Mean Corpuscular Hemoglobin 29 pg (25-35) Mean Corpuscular Hemoglobin Concent 33 g/dL (31-37) Red Cell Distribution Width 14.2 % (11.5-14.5) Platelet Count 197 x10^3/uL (140-400) Neutrophils (%) (Auto) 73 % (31-73) Lymphocytes (%) (Auto) 19 % (24-48) Monocytes (%) (Auto) 8 % (0-9) Eosinophils (%) (Auto) 1 % (0-3) Basophils (%) (Auto) 1 % (0-3) Neutrophils # (Auto) 5.6 x10^3/uL (1.8-7.7) Lymphocytes # (Auto) 1.4 x10^3/uL (1.0-4.8) Monocytes # (Auto) 0.6 x10^3/uL (0.0-1.1) Eosinophils # (Auto) 0.1 x10^3/uL (0.0-0.7) Basophils # (Auto) 0.0 x10^3/uL (0.0-0.2) Sodium Level 135 mmol/L (136-145) Potassium Level 3.6 mmol/L (3.5-5.1) Chloride Level 100 mmol/L (98-107) Carbon Dioxide Level 27 mmol/L (21-32) Anion Gap 8 (6-14) Blood Urea Nitrogen 10 mg/dL (7-20) Creatinine 0.9 mg/dL (0.6-1.0) Estimated GFR (Cockcroft-Gault) 65.5 BUN/Creatinine Ratio 11 (6-20) Glucose Level 112 mg/dL (70-99) Calcium Level 8.9 mg/dL (8.5-10.1) Total Bilirubin 0.4 mg/dL (0.2-1.0) Aspartate Amino Transf (AST/SGOT) 18 U/L (15-37) Alanine Aminotransferase (ALT/SGPT) 29 U/L (14-59) Alkaline Phosphatase 122 U/L (46-116) Total Protein 6.9 g/dL (6.4-8.2) Albumin 3.8 g/dL (3.4-5.0) Albumin/Globulin Ratio 1.2 (1.0-1.7) Urine Collection Type Unknown Urine Color Yellow Urine Clarity Clear Urine pH 7.5 (<5.0-8.0) Urine Specific [place] 1.015 (1.000-1.030) Urine Protein Negative mg/dL (NEG-TRACE) Urine Glucose (UA) Negative mg/dL (NEG) Urine Ketones (Stick) Negative mg/dL (NEG) Urine Blood Negative (NEG) Urine Nitrite Negative (NEG) Urine Bilirubin Negative (NEG) Urine Urobilinogen Dipstick 0.2 mg/dL (0.2 mg/dL) Urine Leukocyte Esterase Trace (NEG) Urine RBC 0 /HPF (0-2) Urine WBC 1-4 /HPF (0-4) Urine Squamous Epithelial Cells Many /LPF Urine Bacteria Few /HPF (0-FEW) Serum Test, Qualitative Negative (NEG) Bedside Urine HCG, Qualitative Hcg negative (Negative) CSF Color Colorless CSF Clarity Clear CSF WBC 328 /cmm (Not Established) CSF RBC 3 /cmm (Not Established) CSF Mononuclear WBCs % 98 % CSF Polynuclear WBCs (%) 2 % CSF Glucose 54 mg/dL (37-70) CSF Total Protein 123.4 mg/dL (15.0-45.0) Laboratory Tests Test 08/24/19 10:14 08/24/19 10:22 08/24/19 10:29 08/24/19 12:27 White Blood Count 7.6 x10^3/uL (4.0-11.0) Red Blood Count 4.75 x10^6/uL (3.50-5.40) Hemoglobin 13.6 g/dL (12.0-15.5) Hematocrit 42.0 % (36.0-47.0) Mean Corpuscular Volume 89 fL (79-100) Mean Corpuscular Hemoglobin 29 pg (25-35) Mean Corpuscular Hemoglobin Concent 33 g/dL (31-37) Red Cell Distribution Width 14.2 % (11.5-14.5) Platelet Count 197 x10^3/uL (140-400) Neutrophils (%) (Auto) 73 % (31-73) Lymphocytes (%) (Auto) 19 % (24-48) Monocytes (%) (Auto) 8 % (0-9) Eosinophils (%) (Auto) 1 % (0-3) Basophils (%) (Auto) 1 % (0-3) Neutrophils # (Auto) 5.6 x10^3/uL (1.8-7.7) Lymphocytes # (Auto) 1.4 x10^3/uL (1.0-4.8) Monocytes # (Auto) 0.6 x10^3/uL (0.0-1.1) Eosinophils # (Auto) 0.1 x10^3/uL (0.0-0.7) Basophils # (Auto) 0.0 x10^3/uL (0.0-0.2) Sodium Level 135 mmol/L (136-145) Potassium Level 3.6 mmol/L (3.5-5.1) Chloride Level 100 mmol/L (98-107) Carbon Dioxide Level 27 mmol/L (21-32) Anion Gap 8 (6-14) Blood Urea Nitrogen 10 mg/dL (7-20) Creatinine 0.9 mg/dL (0.6-1.0) Estimated GFR (Cockcroft-Gault) 65.5 BUN/Creatinine Ratio 11 (6-20) Glucose Level 112 mg/dL (70-99) Calcium Level 8.9 mg/dL (8.5-10.1) Total Bilirubin 0.4 mg/dL (0.2-1.0) Aspartate Amino Transf (AST/SGOT) 18 U/L (15-37) Alanine Aminotransferase (ALT/SGPT) 29 U/L (14-59) Alkaline Phosphatase 122 U/L (46-116) Total Protein 6.9 g/dL (6.4-8.2) Albumin 3.8 g/dL (3.4-5.0) Albumin/Globulin Ratio 1.2 (1.0-1.7) Urine Collection Type Unknown Urine Color Yellow Urine Clarity Clear Urine pH 7.5 (<5.0-8.0) Urine Specific [place] 1.015 (1.000-1.030) Urine Protein Negative mg/dL (NEG-TRACE) Urine Glucose (UA) Negative mg/dL (NEG) Urine Ketones (Stick) Negative mg/dL (NEG) Urine Blood Negative (NEG) Urine Nitrite Negative (NEG) Urine Bilirubin Negative (NEG) Urine Urobilinogen Dipstick 0.2 mg/dL (0.2 mg/dL) Urine Leukocyte Esterase Trace (NEG) Urine RBC 0 /HPF (0-2) Urine WBC 1-4 /HPF (0-4) Urine Squamous Epithelial Cells Many /LPF Urine Bacteria Few /HPF (0-FEW) Serum Test, Qualitative Negative (NEG) Bedside Urine HCG, Qualitative Hcg negative (Negative) CSF Color Colorless CSF Clarity Clear CSF WBC 328 /cmm (Not Established) CSF RBC 3 /cmm (Not Established) CSF Mononuclear WBCs % 98 % CSF Polynuclear WBCs (%) 2 % CSF Glucose 54 mg/dL (37-70) CSF Total Protein 123.4 mg/dL (15.0-45.0) VTE Prophylaxis Ordered VTE Prophylaxis Devices: Yes VTE Pharmacological Prophylaxi: Yes Assessment/Plan Assessment/Plan ASSESSMENT Headache and Fever concern for Viral Meningitis Cervical stenosis and foraminal narrowing, C4-C5 and C5-C6 with right cervical radiculopathy s/p ACDF C4-C5, C5-C6. HTN, not on meds Hx of depression not on meds Hyponatremia Alkaline Phosphatemia Hyperglycemia PLAN admit to medical floor bed HSV pcr pending continue Acyclovir for now prn tylenol for pain and fever IVF since on acyclovir prn KOROMA check a1c repeat LFTs in AM FULL CODE dvt ppx: ambulatory. LILLI HERNANDEZ MD August 24, 2019 14:44
[2019-08-24] MEDS ORDERED: hydrALAZINE 20 MG/ML VIAL. IVP PRN (14:45)
[2019-08-24] MEDS ORDERED: ACYCLOVIR SODIUM IV SCH ×2 (15:00→22:00)
[2019-08-24] MEDS ORDERED: DEXTROSE 5% IV SCH ×2 (15:00→22:00)
[2019-08-24 15:12] VITALS: BP 139/77
[2019-08-24] MEDS ORDERED: ALPRAZolam 0.5 MG TABLET PO PRN (16:00)
[2019-08-24] MEDS: HYDROcodone/APAP 5/325MG 1 TAB TABLET PO PRN ×2 (16:31→22:08)
[2019-08-24 19:15] VITALS: BP 118/72
[2019-08-24 23:15] VITALS: BP 137/81
[2019-08-25] MEDS: IV NORMAL SALINE 1000ML BAG 1,000 ML IV SCH ×3 (00:24→10:24)
[2019-08-25 01:07] LABS: HEMOGLOBIN A1C 5.5 % (4.8-5.6)
[2019-08-25 03:24] VITALS: BP 129/77
[2019-08-25] MEDS: HYDROcodone/APAP 5/325MG 1 TAB TABLET PO PRN (04:41)
[2019-08-25 04:46] LABS: BASO % 1 % (0-3); EOS # 0.1 x10^3/uL (0.0-0.7); EOS % 1 % (0-3); HEMATOCRIT 39.3 % (36.0-47.0); HEMOGLOBIN 12.6 g/dL (12.0-15.5); LYMPH # 2.2 x10^3/uL (1.0-4.8); LYMPH % 39 % (24-48); MEAN CORPUSCULAR HEMOGLOBIN 29 pg (25-35); MEAN CORPUSCULAR HGB CONC 32 g/dL (31-37); MEAN CORPUSCULAR VOLUME 89 fL (79-100); MONO # 0.6 x10^3/uL (0.0-1.1); MONO % 11 % (0-9); NEUT # 2.8 x10^3/uL (1.8-7.7); NEUT % 48 % (31-73); PLATELET COUNT 180 x10^3/uL (140-400); RED BLOOD COUNT 4.41 x10^6/uL (3.50-5.40); RED CELL DISTRIBUTION WIDTH 14.2 % (11.5-14.5); WHITE BLOOD COUNT 5.8 x10^3/uL (4.0-11.0)
[2019-08-25 05:21] LABS: ALBUMIN 3.1 g/dL (3.4-5.0); CALCIUM 8.4 mg/dL (8.5-10.1); CREATININE 0.8 mg/dL (0.6-1.0); DIRECT BILIRUBIN 0.1 mg/dL (0.0-0.2); POTASSIUM 3.4 mmol/L (3.5-5.1); TOTAL BILIRUBIN 0.4 mg/dL (0.2-1.0)
[2019-08-25] MEDS ORDERED: LEVOTHYROXINE 75 MCG TABLET PO SCH (06:00)
[2019-08-25 07:59] VITALS: BP 134/71
--- NOTE | 2019-08-25 08:51 | PDOC ---
Infectious Disease Note Vital Sign Vital Signs Vital Signs Date Time Temp Pulse Resp B/P (MAP) Pulse Ox O2 Delivery O2 Flow Rate FiO2 08/25/19 05:45 96 08/25/19 04:41 18 08/25/19 03:24 98.4 72 129/77 (94) Room Air 98.4 Labs Lab Laboratory Tests Test 08/24/19 10:14 08/24/19 10:15 08/24/19 10:22 08/24/19 10:29 White Blood Count 7.6 x10^3/uL (4.0-11.0) Red Blood Count 4.75 x10^6/uL (3.50-5.40) Hemoglobin 13.6 g/dL (12.0-15.5) Hematocrit 42.0 % (36.0-47.0) Mean Corpuscular Volume 89 fL (79-100) Mean Corpuscular Hemoglobin 29 pg (25-35) Mean Corpuscular Hemoglobin Concent 33 g/dL (31-37) Red Cell Distribution Width 14.2 % (11.5-14.5) Platelet Count 197 x10^3/uL (140-400) Neutrophils (%) (Auto) 73 % (31-73) Lymphocytes (%) (Auto) 19 % (24-48) Monocytes (%) (Auto) 8 % (0-9) Eosinophils (%) (Auto) 1 % (0-3) Basophils (%) (Auto) 1 % (0-3) Neutrophils # (Auto) 5.6 x10^3/uL (1.8-7.7) Lymphocytes # (Auto) 1.4 x10^3/uL (1.0-4.8) Monocytes # (Auto) 0.6 x10^3/uL (0.0-1.1) Eosinophils # (Auto) 0.1 x10^3/uL (0.0-0.7) Basophils # (Auto) 0.0 x10^3/uL (0.0-0.2) Sodium Level 135 mmol/L (136-145) Potassium Level 3.6 mmol/L (3.5-5.1) Chloride Level 100 mmol/L (98-107) Carbon Dioxide Level 27 mmol/L (21-32) Anion Gap 8 (6-14) Blood Urea Nitrogen 10 mg/dL (7-20) Creatinine 0.9 mg/dL (0.6-1.0) Estimated GFR (Cockcroft-Gault) 65.5 BUN/Creatinine Ratio 11 (6-20) Glucose Level 112 mg/dL (70-99) Calcium Level 8.9 mg/dL (8.5-10.1) Total Bilirubin 0.4 mg/dL (0.2-1.0) Aspartate Amino Transf (AST/SGOT) 18 U/L (15-37) Alanine Aminotransferase (ALT/SGPT) 29 U/L (14-59) Alkaline Phosphatase 122 U/L (46-116) Total Protein 6.9 g/dL (6.4-8.2) Albumin 3.8 g/dL (3.4-5.0) Albumin/Globulin Ratio 1.2 (1.0-1.7) Hemoglobin A1c 5.5 % (4.8-5.6) Thyroid Stimulating Hormone (TSH) 0.515 uIU/mL (0.358-3.74) Urine Collection Type Unknown Urine Color Yellow Urine Clarity Clear Urine pH 7.5 (<5.0-8.0) Urine Specific [place] 1.015 (1.000-1.030) Urine Protein Negative mg/dL (NEG-TRACE) Urine Glucose (UA) Negative mg/dL (NEG) Urine Ketones (Stick) Negative mg/dL (NEG) Urine Blood Negative (NEG) Urine Nitrite Negative (NEG) Urine Bilirubin Negative (NEG) Urine Urobilinogen Dipstick 0.2 mg/dL (0.2 mg/dL) Urine Leukocyte Esterase Trace (NEG) Urine RBC 0 /HPF (0-2) Urine WBC 1-4 /HPF (0-4) Urine Squamous Epithelial Cells Many /LPF Urine Bacteria Few /HPF (0-FEW) Serum Test, Qualitative Negative (NEG) Bedside Urine HCG, Qualitative Hcg negative (Negative) Test 08/24/19 12:27 08/25/19 04:15 CSF Color Colorless CSF Clarity Clear CSF WBC 328 /cmm (Not Established) CSF RBC 3 /cmm (Not Established) CSF Mononuclear WBCs % 98 % CSF Polynuclear WBCs (%) 2 % CSF Glucose 54 mg/dL (37-70) CSF Total Protein 123.4 mg/dL (15.0-45.0) White Blood Count 5.8 x10^3/uL (4.0-11.0) Red Blood Count 4.41 x10^6/uL (3.50-5.40) Hemoglobin 12.6 g/dL (12.0-15.5) Hematocrit 39.3 % (36.0-47.0) Mean Corpuscular Volume 89 fL (79-100) Mean Corpuscular Hemoglobin 29 pg (25-35) Mean Corpuscular Hemoglobin Concent 32 g/dL (31-37) Red Cell Distribution Width 14.2 % (11.5-14.5) Platelet Count 180 x10^3/uL (140-400) Neutrophils (%) (Auto) 48 % (31-73) Lymphocytes (%) (Auto) 39 % (24-48) Monocytes (%) (Auto) 11 % (0-9) Eosinophils (%) (Auto) 1 % (0-3) Basophils (%) (Auto) 1 % (0-3) Neutrophils # (Auto) 2.8 x10^3/uL (1.8-7.7) Lymphocytes # (Auto) 2.2 x10^3/uL (1.0-4.8) Monocytes # (Auto) 0.6 x10^3/uL (0.0-1.1) Eosinophils # (Auto) 0.1 x10^3/uL (0.0-0.7) Basophils # (Auto) 0.0 x10^3/uL (0.0-0.2) Sodium Level 138 mmol/L (136-145) Potassium Level 3.4 mmol/L (3.5-5.1) Chloride Level 103 mmol/L (98-107) Carbon Dioxide Level 28 mmol/L (21-32) Anion Gap 7 (6-14) Blood Urea Nitrogen 13 mg/dL (7-20) Creatinine 0.8 mg/dL (0.6-1.0) Estimated GFR (Cockcroft-Gault) 75.0 Glucose Level 107 mg/dL (70-99) Calcium Level 8.4 mg/dL (8.5-10.1) Total Bilirubin 0.4 mg/dL (0.2-1.0) Direct Bilirubin 0.1 mg/dL (0.0-0.2) Aspartate Amino Transf (AST/SGOT) 18 U/L (15-37) Alanine Aminotransferase (ALT/SGPT) 25 U/L (14-59) Alkaline Phosphatase 101 U/L (46-116) Total Protein 6.0 g/dL (6.4-8.2) Albumin 3.1 g/dL (3.4-5.0) Micro Microbiology 08/24/19 CSF Gram Stain - Final, Complete Objective Assessment Aseptic Meningitis Plan Plan of Care Clinically improving Agree no need to antimicrobials at this point Thank you # [id number] FREDO PELAYO MD August 25, 2019 08:51
[2019-08-25] MEDS ORDERED: buPROPion XL 150 MG TAB.ER.24H. PO SCH (09:00)
[2019-08-25] MEDS ORDERED: amLODIPine BESYLATE 5 MG TABLET PO SCH (09:00)
[2019-08-25] MEDS ORDERED: STRATTERA PO SCH (09:00)
--- NOTE | 2019-08-25 09:02 | PDOC3 ---
Discharge Summary Visit Information Date of Admission: August 24, 2019 Date of Discharge: August 25, 2019 Final Diagnosis Problems Medical Problems: (1) Headache Status: Acute (2) Viral meningitis Status: Acute Brief Hospital Course Allergies Allergies Coded Allergies Type Severity Reaction Last Updated Verified No Known Drug Allergies 01/30/18 No Vital Signs Vital Signs Date Time Temp Pulse Resp B/P (MAP) Pulse Ox O2 Delivery O2 Flow Rate FiO2 08/25/19 05:45 96 08/25/19 04:41 18 08/25/19 03:24 98.4 72 129/77 (94) Room Air 98.4 Lab Results Laboratory Tests Test 08/24/19 10:14 08/24/19 10:15 08/24/19 10:22 08/24/19 10:29 White Blood Count 7.6 x10^3/uL (4.0-11.0) Red Blood Count 4.75 x10^6/uL (3.50-5.40) Hemoglobin 13.6 g/dL (12.0-15.5) Hematocrit 42.0 % (36.0-47.0) Mean Corpuscular Volume 89 fL (79-100) Mean Corpuscular Hemoglobin 29 pg (25-35) Mean Corpuscular Hemoglobin Concent 33 g/dL (31-37) Red Cell Distribution Width 14.2 % (11.5-14.5) Platelet Count 197 x10^3/uL (140-400) Neutrophils (%) (Auto) 73 % (31-73) Lymphocytes (%) (Auto) 19 % (24-48) Monocytes (%) (Auto) 8 % (0-9) Eosinophils (%) (Auto) 1 % (0-3) Basophils (%) (Auto) 1 % (0-3) Neutrophils # (Auto) 5.6 x10^3/uL (1.8-7.7) Lymphocytes # (Auto) 1.4 x10^3/uL (1.0-4.8) Monocytes # (Auto) 0.6 x10^3/uL (0.0-1.1) Eosinophils # (Auto) 0.1 x10^3/uL (0.0-0.7) Basophils # (Auto) 0.0 x10^3/uL (0.0-0.2) Sodium Level 135 mmol/L (136-145) Potassium Level 3.6 mmol/L (3.5-5.1) Chloride Level 100 mmol/L (98-107) Carbon Dioxide Level 27 mmol/L (21-32) Anion Gap 8 (6-14) Blood Urea Nitrogen 10 mg/dL (7-20) Creatinine 0.9 mg/dL (0.6-1.0) Estimated GFR (Cockcroft-Gault) 65.5 BUN/Creatinine Ratio 11 (6-20) Glucose Level 112 mg/dL (70-99) Calcium Level 8.9 mg/dL (8.5-10.1) Total Bilirubin 0.4 mg/dL (0.2-1.0) Aspartate Amino Transf (AST/SGOT) 18 U/L (15-37) Alanine Aminotransferase (ALT/SGPT) 29 U/L (14-59) Alkaline Phosphatase 122 U/L (46-116) Total Protein 6.9 g/dL (6.4-8.2) Albumin 3.8 g/dL (3.4-5.0) Albumin/Globulin Ratio 1.2 (1.0-1.7) Hemoglobin A1c 5.5 % (4.8-5.6) Thyroid Stimulating Hormone (TSH) 0.515 uIU/mL (0.358-3.74) Urine Collection Type Unknown Urine Color Yellow Urine Clarity Clear Urine pH 7.5 (<5.0-8.0) Urine Specific [place] 1.015 (1.000-1.030) Urine Protein Negative mg/dL (NEG-TRACE) Urine Glucose (UA) Negative mg/dL (NEG) Urine Ketones (Stick) Negative mg/dL (NEG) Urine Blood Negative (NEG) Urine Nitrite Negative (NEG) Urine Bilirubin Negative (NEG) Urine Urobilinogen Dipstick 0.2 mg/dL (0.2 mg/dL) Urine Leukocyte Esterase Trace (NEG) Urine RBC 0 /HPF (0-2) Urine WBC 1-4 /HPF (0-4) Urine Squamous Epithelial Cells Many /LPF Urine Bacteria Few /HPF (0-FEW) Serum Test, Qualitative Negative (NEG) Bedside Urine HCG, Qualitative Hcg negative (Negative) Test 08/24/19 12:27 08/25/19 04:15 CSF Color Colorless CSF Clarity Clear CSF WBC 328 /cmm (Not Established) CSF RBC 3 /cmm (Not Established) CSF Mononuclear WBCs % 98 % CSF Polynuclear WBCs (%) 2 % CSF Glucose 54 mg/dL (37-70) CSF Total Protein 123.4 mg/dL (15.0-45.0) White Blood Count 5.8 x10^3/uL (4.0-11.0) Red Blood Count 4.41 x10^6/uL (3.50-5.40) Hemoglobin 12.6 g/dL (12.0-15.5) Hematocrit 39.3 % (36.0-47.0) Mean Corpuscular Volume 89 fL (79-100) Mean Corpuscular Hemoglobin 29 pg (25-35) Mean Corpuscular Hemoglobin Concent 32 g/dL (31-37) Red Cell Distribution Width 14.2 % (11.5-14.5) Platelet Count 180 x10^3/uL (140-400) Neutrophils (%) (Auto) 48 % (31-73) Lymphocytes (%) (Auto) 39 % (24-48) Monocytes (%) (Auto) 11 % (0-9) Eosinophils (%) (Auto) 1 % (0-3) Basophils (%) (Auto) 1 % (0-3) Neutrophils # (Auto) 2.8 x10^3/uL (1.8-7.7) Lymphocytes # (Auto) 2.2 x10^3/uL (1.0-4.8) Monocytes # (Auto) 0.6 x10^3/uL (0.0-1.1) Eosinophils # (Auto) 0.1 x10^3/uL (0.0-0.7) Basophils # (Auto) 0.0 x10^3/uL (0.0-0.2) Sodium Level 138 mmol/L (136-145) Potassium Level 3.4 mmol/L (3.5-5.1) Chloride Level 103 mmol/L (98-107) Carbon Dioxide Level 28 mmol/L (21-32) Anion Gap 7 (6-14) Blood Urea Nitrogen 13 mg/dL (7-20) Creatinine 0.8 mg/dL (0.6-1.0) Estimated GFR (Cockcroft-Gault) 75.0 Glucose Level 107 mg/dL (70-99) Calcium Level 8.4 mg/dL (8.5-10.1) Total Bilirubin 0.4 mg/dL (0.2-1.0) Direct Bilirubin 0.1 mg/dL (0.0-0.2) Aspartate Amino Transf (AST/SGOT) 18 U/L (15-37) Alanine Aminotransferase (ALT/SGPT) 25 U/L (14-59) Alkaline Phosphatase 101 U/L (46-116) Total Protein 6.0 g/dL (6.4-8.2) Albumin 3.1 g/dL (3.4-5.0) Laboratory Tests Test 08/24/19 10:14 08/24/19 10:15 08/24/19 10:22 08/24/19 10:29 White Blood Count 7.6 x10^3/uL (4.0-11.0) Red Blood Count 4.75 x10^6/uL (3.50-5.40) Hemoglobin 13.6 g/dL (12.0-15.5) Hematocrit 42.0 % (36.0-47.0) Mean Corpuscular Volume 89 fL (79-100) Mean Corpuscular Hemoglobin 29 pg (25-35) Mean Corpuscular Hemoglobin Concent 33 g/dL (31-37) Red Cell Distribution Width 14.2 % (11.5-14.5) Platelet Count 197 x10^3/uL (140-400) Neutrophils (%) (Auto) 73 % (31-73) Lymphocytes (%) (Auto) 19 % (24-48) Monocytes (%) (Auto) 8 % (0-9) Eosinophils (%) (Auto) 1 % (0-3) Basophils (%) (Auto) 1 % (0-3) Neutrophils # (Auto) 5.6 x10^3/uL (1.8-7.7) Lymphocytes # (Auto) 1.4 x10^3/uL (1.0-4.8) Monocytes # (Auto) 0.6 x10^3/uL (0.0-1.1) Eosinophils # (Auto) 0.1 x10^3/uL (0.0-0.7) Basophils # (Auto) 0.0 x10^3/uL (0.0-0.2) Sodium Level 135 mmol/L (136-145) Potassium Level 3.6 mmol/L (3.5-5.1) Chloride Level 100 mmol/L (98-107) Carbon Dioxide Level 27 mmol/L (21-32) Anion Gap 8 (6-14) Blood Urea Nitrogen 10 mg/dL (7-20) Creatinine 0.9 mg/dL (0.6-1.0) Estimated GFR (Cockcroft-Gault) 65.5 BUN/Creatinine Ratio 11 (6-20) Glucose Level 112 mg/dL (70-99) Calcium Level 8.9 mg/dL (8.5-10.1) Total Bilirubin 0.4 mg/dL (0.2-1.0) Aspartate Amino Transf (AST/SGOT) 18 U/L (15-37) Alanine Aminotransferase (ALT/SGPT) 29 U/L (14-59) Alkaline Phosphatase 122 U/L (46-116) Total Protein 6.9 g/dL (6.4-8.2) Albumin 3.8 g/dL (3.4-5.0) Albumin/Globulin Ratio 1.2 (1.0-1.7) Hemoglobin A1c 5.5 % (4.8-5.6) Thyroid Stimulating Hormone (TSH) 0.515 uIU/mL (0.358-3.74) Urine Collection Type Unknown Urine Color Yellow Urine Clarity Clear Urine pH 7.5 (<5.0-8.0) Urine Specific [place] 1.015 (1.000-1.030) Urine Protein Negative mg/dL (NEG-TRACE) Urine Glucose (UA) Negative mg/dL (NEG) Urine Ketones (Stick) Negative mg/dL (NEG) Urine Blood Negative (NEG) Urine Nitrite Negative (NEG) Urine Bilirubin Negative (NEG) Urine Urobilinogen Dipstick 0.2 mg/dL (0.2 mg/dL) Urine Leukocyte Esterase Trace (NEG) Urine RBC 0 /HPF (0-2) Urine WBC 1-4 /HPF (0-4) Urine Squamous Epithelial Cells Many /LPF Urine Bacteria Few /HPF (0-FEW) Serum Test, Qualitative Negative (NEG) Bedside Urine HCG, Qualitative Hcg negative (Negative) Test 08/24/19 12:27 08/25/19 04:15 CSF Color Colorless CSF Clarity Clear CSF WBC 328 /cmm (Not Established) CSF RBC 3 /cmm (Not Established) CSF Mononuclear WBCs % 98 % CSF Polynuclear WBCs (%) 2 % CSF Glucose 54 mg/dL (37-70) CSF Total Protein 123.4 mg/dL (15.0-45.0) White Blood Count 5.8 x10^3/uL (4.0-11.0) Red Blood Count 4.41 x10^6/uL (3.50-5.40) Hemoglobin 12.6 g/dL (12.0-15.5) Hematocrit 39.3 % (36.0-47.0) Mean Corpuscular Volume 89 fL (79-100) Mean Corpuscular Hemoglobin 29 pg (25-35) Mean Corpuscular Hemoglobin Concent 32 g/dL (31-37) Red Cell Distribution Width 14.2 % (11.5-14.5) Platelet Count 180 x10^3/uL (140-400) Neutrophils (%) (Auto) 48 % (31-73) Lymphocytes (%) (Auto) 39 % (24-48) Monocytes (%) (Auto) 11 % (0-9) Eosinophils (%) (Auto) 1 % (0-3) Basophils (%) (Auto) 1 % (0-3) Neutrophils # (Auto) 2.8 x10^3/uL (1.8-7.7) Lymphocytes # (Auto) 2.2 x10^3/uL (1.0-4.8) Monocytes # (Auto) 0.6 x10^3/uL (0.0-1.1) Eosinophils # (Auto) 0.1 x10^3/uL (0.0-0.7) Basophils # (Auto) 0.0 x10^3/uL (0.0-0.2) Sodium Level 138 mmol/L (136-145) Potassium Level 3.4 mmol/L (3.5-5.1) Chloride Level 103 mmol/L (98-107) Carbon Dioxide Level 28 mmol/L (21-32) Anion Gap 7 (6-14) Blood Urea Nitrogen 13 mg/dL (7-20) Creatinine 0.8 mg/dL (0.6-1.0) Estimated GFR (Cockcroft-Gault) 75.0 Glucose Level 107 mg/dL (70-99) Calcium Level 8.4 mg/dL (8.5-10.1) Total Bilirubin 0.4 mg/dL (0.2-1.0) Direct Bilirubin 0.1 mg/dL (0.0-0.2) Aspartate Amino Transf (AST/SGOT) 18 U/L (15-37) Alanine Aminotransferase (ALT/SGPT) 25 U/L (14-59) Alkaline Phosphatase 101 U/L (46-116) Total Protein 6.0 g/dL (6.4-8.2) Albumin 3.1 g/dL (3.4-5.0) Brief Hospital Course 53 year old CF with hx off HTN previously on norvasc but not taking, hx of depression, not on meds per patient report, cervical stenosis s/p anterior cervical discectomy and fusion who reports headache since 36 hrs with fever of 101 yesterday. reports headache mostly posterior and travels down her neck with stiffness. no family hx of SAH or brain aneurysim. seen at [facility] by H[facility]TING [employer]ING GUIDE who discharged her yesterday after toradol. no improvement in headache so came to ED. denies any recent travel. no rashes or joint pain. denies any neurological deficits. no change in vision. no sensitivity to light. patient had LP done in ED. CSF protein [address] head negative. labs otherwise normal. ASSESSMENT Headache and Fever secondary to Viral Meningitis Cervical stenosis and foraminal narrowing, C4-C5 and C5-C6 with right cervical radiculopathy s/p ACDF C4-C5, C5-C6. HTN, not on meds Hx of depression not on meds Hyponatremia Alkaline Phosphatemia Hyperglycemia PLAN patient admitted to floor. initially acyclovir started but dc'd per ID. given tylenol with improvement. Microbiology 08/24/19 CSF Gram Stain - Final, Complete seen by ID and okay to discharge given no symptoms now. supportive care at home with tylenol and motrin and fluids will dc today Discharge Information Condition at Discharge: Improved Disposition/Orders: D/C to Home Scheduled Alprazolam (Xanax) 0.5 Mg Tablet, 1 TAB PO HS for SLEEPING, #30 (Reported) Entered as Reported by: MARINA GARZA on 01/30/18 0884 Last Action: HELD on 08/24/19 1424 by LILLI HERNANDEZ MD Bupropion Hcl (Wellbutrin Xl) 150 Mg Tab.er.24h, 150 MG PO DAILY for DEPRESSION, (Reported) Entered as Reported by: AURORA REGAN on 06/20/18 1053 Last Action: HELD on 08/24/191423 by LILLI HERNANDEZ MD Dextroamphetamine/Amphetamine (Adderall 10 Mg Tablet) 10 Mg Tablet, 10 MG PO DAILY for AHD, (Reported) Entered as Reported by: MARINA GARZA on 01/30/18 0859 Last Action: HELD on 08/24/191423 by LILLI HERNANDEZ MD Docusate Sodium (Colace) 100 Mg Capsule, 100 MG PO BID for constipation, #60 Prescribed by: DEUCE JOSE on 06/27/18948 Last Action: HELD on 08/24/191423 by LILLI HERNANDEZ MD Duloxetine Hcl (Cymbalta) 60 Mg Capsule.dr, 60 MG PO DAILY for DEPRESSION, (Reported) Entered as Reported by: MARINA GARZA on 01/30/18 0859 Last Action: HELD on 08/24/191422 by LILLI HERNANDEZ MD Levothyroxine Sodium (Levothyroxine Sodium) 50 Mcg Tablet, 1 TAB PO DAILY for rx, #30 Ref 5 (Reported) Entered as Reported by: MARINA GARZA on 02/27/18 1500 Last Action: HELD on 08/24/191423 by LILLI HERNANDEZ MD Multivitamin (Multivitamins) 1 Each Tablet, 1 EACH PO DAILY for SUPPLEMENT, (Reported) Entered as Reported by: AURORA REGAN on 06/20/18 105 Last Action: HELD on 08/24/191423 by LILLI HERNANDEZ MD Scheduled PRN Hydrocodone Bit/Acetaminophen (Hydrocodone-Apap 5-325 ) 1 Tab Tablet, 1 TAB PO PRN Q4HRS PRN for MILD PAIN, #40 Prescribed by: DEUCE JOSE on 06/27/18948 Last Action: HELD on 08/24/191423 by LILLI HERNANDEZ MD Methocarbamol (Methocarbamol) 750 Mg Tablet, 750 MG PO TID PRN PRN for MUSCLE SPASMS, #60 Prescribed by: DEUCE JOSE on 06/27/18948 Last Action: HELD on 08/24/191423 by LILLIMD DAVID SNOW MANEESH MD August 25, 2019 09:02
[2019-08-25] MEDS ORDERED: POTASSIUM CHLORIDE 20 MEQ TABLET.ER. PO ONE (10:00)
--- NOTE | 2019-08-25 10:05 | CONS ---
DATE OF CONSULTATION: 08/25/2019 LOCATION: The patient's room is 408. REQUESTING PHYSICIAN: Dr. Cee. REASON FOR CONSULTATION: Viral meningitis. 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 She went to her primary care doctor, did some blood work. She did run a fever of up to 101 and then just presented to [facility] on the . She had a normal white blood cell count with a lower lymphocyte count, but did undergo a spinal tap, had 328 white cells, 3 red cells. Her glucose was 54 and her total protein was about 123.4. Gram stain was negative. She had not received any antibiotics. She did receive some acyclovir, but this has been discontinued. Currently, the patient is sitting upright in bed. She feels better. Her fevers have resolved. She had a little bit of headache, occasional nausea. No photophobia. No stiff neck. Appetite is okay. No rashes. Denies any lesions. No history of herpes infections. She denies being around any small children. She does have an 8-month old ill small children. She has 8-month old grandchild, who is healthy. PAST MEDICAL HISTORY: Positive for hypertension and depression and hypothyroid. PAST SURGICAL HISTORY: Positive for cervical stenosis, status post anterior cervical diskectomy and fusion with a cage. REVIEW OF SYSTEMS: Otherwise negative. SOCIAL HISTORY: Again, she works as a nurse. She has 3 dogs and 2 cats at home. She denies any bug bites or tick bites and no tobacco or alcohol. FAMILY HISTORY: Noncontributory for any ill contacts. CURRENT MEDICATIONS: Acyclovir has been discontinued. She is on amlodipine, Xanax, Wellbutrin, Colace, Synthroid. PHYSICAL EXAMINATION: VITAL SIGNS: She has been afebrile since her presentation, temperature here 98.4, pulse 72, respirations 18, blood pressure 129/77, satting 96% on room air. CONSTITUTIONAL: She is pleasant, cooperative, in no acute distress. She is sitting upright in bed. HEENT: Pupils are equal and reactive to light and accommodation. Extraocular muscles were intact. She had no pain, no photophobia. Normal conjunctivae. Oral cavity, pharynx is clear. NECK: Supple. Good range of motion. No fullness or JVD. LUNGS: Clear to auscultation. HEART: S1, S2. ABDOMEN: Soft, nontender, nondistended with positive bowel sounds. BACK: Lumbar site from puncture was without complications. She has a little discomfort just below the site, but there is no erythema. There is no drainage. There is no warmth. There is no fluctuance. EXTREMITIES: Without clubbing, cyanosis or gross edema. NEUROLOGIC: She is nonfocal, moves all extremities, has no weakness. SKIN: Warm to touch without signs of rash. PSYCHIATRIC: Affect is appropriate. LABORATORY DATA: White count 5.8, hemoglobin 12.6, platelets of 180, neutrophils 48, lymphs 39, creatinine 0.8. Normal liver function study tests. LP reviewed in history of present illness. is negative. Urinalysis without concern for infection. CT scan of the head, no acute intracranial abnormality. IMPRESSION: Aseptic meningitis. RECOMMENDATIONS: Clinically, she is improving. Agree, no need for antimicrobials at this point. Thank you for allowing me to participate in the patient's care. Should you have any questions, please do not hesitate to contact me. FREDO PELAYO MD DR: BARBARA/corine JOB#: [id number] / [id number] VIKTOR
[2019-08-25 10:43] VITALS: BP 129/79
--- NOTE | 2019-08-25 10:57 | NUR ---
Discharge Note: KAREN LEVIN MENDOTA Discharge instructions and discharge home medications reviewed with Patient and a copy given. All questions have been answered and understanding verbalized. The following instructions and handouts were given: discharge instructions, education and follow up recommendations. Discontinued lines and drains: Peripheral IV discontinued intact. Patient discharged to Home or Self Care with Family Member via Ambulated off unit by MARKETING CLERK.
== END 2019-08-25 11:00 | disposition home or self-care (01) ==
LOC: ER 09:47 → 4 NORTH 14:16
PROVIDERS: ADMIT Internal Medicine; ATTEND Internal Medicine
DX: M54.12 Radiculopathy, cervical region (principal); R51 Headache; A87.9 Viral meningitis, unspecified; I10 Essential (primary) hypertension; F32.9 Major depressive disorder, single episode, unspecified; M48.02 Spinal stenosis, cervical region; R73.9 Hyperglycemia, unspecified; E03.9 Hypothyroidism, unspecified; E87.1 Hypo-osmolality and hyponatremia; E83.39 Other disorders of phosphorus metabolism; F41.9 Anxiety disorder, unspecified; F98.8 Other specified behavioral and emotional disorders with onset usually occurring in childhood and adolescence; Z87.891 Personal history of nicotine dependence; Z98.890 Other specified postprocedural states; Z79.899 Other long term (current) drug therapy
CPT/HCPCS: 36415; 62270; 70450; 80048; 80053; 80076; 81001; 81025; 82945; 83036; 84157; 84443; 84703; 85025; 87071; 87075; 87086; 87529; 89051; 96374; 99284; G0378; J1200; J7030; J8597; G0379

== ENCOUNTER → 2019-12-27 | Outpatient (CLI) | payer OTHER ==
[~2019-12-27] MED LIST changes: +AMLO5TAB10 PO; +DEXT25CA4 PO; +GADOTERATE 7.5 MMOL/15ML VIAL. IVP ONE; +MULT-445 PO; -MULT1TAB52 PO
--- NOTE | 2019-12-27 10:45 | KCIC ---
BRAIN WO/W CONTRAST Date: 12/27/2019 8:45 AM Indication: HALLUCINATIONS. Viral, spinal meningitis August 2019. Feels sensation of crawling on her skin since she was sick. Comparison: CT head 08/24/2019. Technique: Multiplanar multisequence MRI of the brain was performed with and without intravenous contrast using the standard protocol. 12 cc Clariscan contrast was administered intravenously during the exam. Findings: No acute infarct. No acute or chronic hemorrhage. The ventricles are normal in size and configuration without hydrocephalus. Mild scattered FLAIR hyperintensities in the subcortical and periventricular deep white matter, a nonspecific finding. No abnormal enhancement. The scalp and calvarium are normal. The pituitary and sella are normal. No Chiari malformation. The visualized upper cervical spine is normal. The visualized orbits and globes are normal. The visualized paranasal sinuses are clear. The mastoid air cells are clear. Normal flow voids within the vertebral, basilar, and internal carotid arteries indicating patency. IMPRESSION: 1. No acute infarct or hemorrhage. No mass or abnormal enhancement. 2. Mild scattered FLAIR hyperintensities in the subcortical and periventricular deep white matter, a nonspecific finding which is commonly seen with chronic small vessel ischemic disease. Other considerations would include sequela of chronic migraines, demyelinating disease (although not a classic distribution on this exam), drug toxicity, prior infection (Lyme disease), prior injury, or vasculitis. Electronically signed by: Aurelio Be MD (12/27/2019 10:42 AM) [id number]
== END | disposition home or self-care (01) ==
LOC: KCIC MRI 08:33
PROVIDERS: ATTEND Internal Medicine
DX: R44.2 Other hallucinations (principal); R41.0 Disorientation, unspecified
CPT/HCPCS: 70553; A9575

== ENCOUNTER 2020-12-21 10:50 | Emergency (ER) | payer OTHER ==
[~2020-12-21] VITALS: Ht 165.1 cm; Wt 68.2 kg
[~2020-12-21 10:50] MED LIST changes: +AMLO-186 PO; -AMLO5TAB10 PO; -GADOTERATE 7.5 MMOL/15ML VIAL. IVP ONE; +METH-562 PO; -METH750T2 PO; +MIRT-36 PO; -MIRT15TA PO
[2020-12-21 11:43] VITALS: BP 154/76
[2020-12-21 11:44] LABS: BASO % 1 % (0-3); EOS # 0.2 x10^3/uL (0.0-0.7); EOS % 4 % (0-3); HEMATOCRIT 42.8 % (36.0-47.0); HEMOGLOBIN 14.2 g/dL (12.0-15.5); LYMPH # 1.9 x10^3/uL (1.0-4.8); LYMPH % 35 % (24-48); MEAN CORPUSCULAR HEMOGLOBIN 29 pg (25-35); MEAN CORPUSCULAR HGB CONC 33 g/dL (31-37); MEAN CORPUSCULAR VOLUME 89 fL (79-100); MONO # 0.5 x10^3/uL (0.0-1.1); MONO % 10 % (0-9); NEUT # 2.7 x10^3/uL (1.8-7.7); NEUT % 50 % (31-73); PLATELET COUNT 180 x10^3/uL (140-400); RED BLOOD COUNT 4.83 x10^6/uL (3.50-5.40); RED CELL DISTRIBUTION WIDTH 13.8 % (11.5-14.5); WHITE BLOOD COUNT 5.4 x10^3/uL (4.0-11.0)
[2020-12-21 11:46] LABS: CALCIUM 9.1 mg/dL (8.5-10.1); GFR 57.6; POTASSIUM 3.4 mmol/L (3.5-5.1)
[2020-12-21 11:52] LABS: ALBUMIN 3.7 g/dL (3.4-5.0); ALBUMIN/GLOBULIN RATIO 1.2 (1.0-1.7); TOTAL BILIRUBIN 0.2 mg/dL (0.2-1.0); TOTAL PROTEIN 6.9 g/dL (6.4-8.2)
--- NOTE | 2020-12-21 12:10 | PHYS DOC ---
Past Medical History Past Medical History: Anxiety, Depression, Hypertension, Hypothyroid, Other Additional Past Medical Histor: ADD Past Surgical History: Other Additional Past Surgical Histo: ANTERIOR CERVICAL DISSECTION,TUBAL Smoking Status: Never Smoker Alcohol Use: Occasionally General Adult EDM: Chief Complaint: FATIGUE HPI: HPI: Patient is a 55 year old female history of HTN, hypothyroidism who presents with ongoing headaches and worsening fatigue after a fall with head strike in late November. On the day of her fall she had a negative CT of her head. She has had daily headaches since. Over the past several days has had increasing fatigue and has been sleeping more often than before. She is also had some worsening back pain/aches. 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 She has not had a Covid test in the past 10 days. She denies any other neurologic symptoms such as speech difficulty, vision changes, confusion, facial asymmetry, extremity weakness or numbness, coordination difficulty, difficulty with walking/balance. She is not on any blood thinners. Has not had any recurrent head trauma. Review of Systems: Review of Systems: Constitutional: Reports fatigue. Denies fever or chills. [] Eyes: Denies change in visual acuity. [] HENT: Denies nasal congestion or sore throat. [] Respiratory: Denies cough or shortness of breath. [] Cardiovascular: Denies chest pain or edema. [] GI: Denies abdominal pain, nausea, vomiting, bloody stools or diarrhea. [] : Denies dysuria. [] Musculoskeletal: Denies back pain or joint pain. [] Integument: Denies rash. [] Neurologic: Reports headache. Denies headache, focal weakness or sensory changes. [] Endocrine: Denies polyuria or polydipsia. [] Lymphatic: Denies swollen glands. [] Psychiatric: Denies depression or anxiety. [] Heart Score: C/O Chest Pain: No Risk Factors: Risk Factors: DM, Current or recent (<one month) smoker, HTN, HLP, family history of CAD, obesity. Risk Scores: Score 0 - 3: 2.5% MACE over next 6 weeks - Discharge Home Score 4 - 6: 20.3% MACE over next 6 weeks - Admit for Clinical Observation Score 7 - 10: 72.7% MACE over next 6 weeks - Early Invasive Strategies Allergies: Allergies: Allergies Coded Allergies Type Severity Reaction Last Updated Verified No Known Drug Allergies 01/30/18 No Physical Exam: PE: Constitutional: Well developed, well nourished, no acute distress, non-toxic appearance. [] HENT: Normocephalic, atraumatic, bilateral external ears normal, oropharynx moist, no oral exudates, nose normal. [] Eyes: PERRLA, EOMI, conjunctiva normal, no discharge. [] Neck: Normal range of motion, no tenderness, supple, no stridor. [] Cardiovascular:Heart rate regular rhythm, no murmur [] Lungs & Thorax: Bilateral breath sounds clear to auscultation [] Abdomen: Bowel sounds normal, soft, no tenderness, no masses, no pulsatile masses. [] Skin: Warm, dry, no erythema, no rash. [] Back: No tenderness, no CVA tenderness. [] Extremities: No tenderness, no cyanosis, no clubbing, ROM intact, no edema. [] Neurologic: Alert, oriented to person, place, time. Face is symmetric. Speech is normal. Cranial nerves III-XII intact. 5/5 strength in bilateral upper and lower extremities in all dermatomes. No dysmetria with [id number] or xavd-kg-uvuc testing. Gait is stable. Psychologic: Affect normal, judgement normal, mood normal. [] Current Patient Data: Labs: Laboratory Tests Test 12/21/20 11:28 White Blood Count 5.4 x10^3/uL (4.0-11.0) Red Blood Count 4.83 x10^6/uL (3.50-5.40) Hemoglobin 14.2 g/dL (12.0-15.5) Hematocrit 42.8 % (36.0-47.0) Mean Corpuscular Volume 89 fL (79-100) Mean Corpuscular Hemoglobin 29 pg (25-35) Mean Corpuscular Hemoglobin Concent 33 g/dL (31-37) Red Cell Distribution Width 13.8 % (11.5-14.5) Platelet Count 180 x10^3/uL (140-400) Neutrophils (%) (Auto) 50 % (31-73) Lymphocytes (%) (Auto) 35 % (24-48) Monocytes (%) (Auto) 10 % (0-9) H Eosinophils (%) (Auto) 4 % (0-3) H Basophils (%) (Auto) 1 % (0-3) Neutrophils # (Auto) 2.7 x10^3/uL (1.8-7.7) Lymphocytes # (Auto) 1.9 x10^3/uL (1.0-4.8) Monocytes # (Auto) 0.5 x10^3/uL (0.0-1.1) Eosinophils # (Auto) 0.2 x10^3/uL (0.0-0.7) Basophils # (Auto) 0.0 x10^3/uL (0.0-0.2) Sodium Level 143 mmol/L (136-145) Potassium Level 3.4 mmol/L (3.5-5.1) L Chloride Level 104 mmol/L (98-107) Carbon Dioxide Level 29 mmol/L (21-32) Anion Gap 10 (6-14) Blood Urea Nitrogen 14 mg/dL (7-20) Creatinine 1.0 mg/dL (0.6-1.0) Estimated GFR (Cockcroft-Gault) 57.6 BUN/Creatinine Ratio 14 (6-20) Glucose Level 162 mg/dL (70-99) H Calcium Level 9.1 mg/dL (8.5-10.1) Total Bilirubin 0.2 mg/dL (0.2-1.0) Aspartate Amino Transferase (AST) 15 U/L (15-37) Alanine Aminotransferase (ALT) 28 U/L (14-59) Alkaline Phosphatase 152 U/L (46-116) H Total Protein 6.9 g/dL (6.4-8.2) Albumin 3.7 g/dL (3.4-5.0) Albumin/Globulin Ratio 1.2 (1.0-1.7) Thyroid Stimulating Hormone (TSH) 2.251 uIU/mL (0.358-3.74) Laboratory Tests 12/21/20 11:28 Laboratory Tests 12/21/20 11:28 Vital Signs: Vital Signs Date Time Temp Pulse Resp B/P (MAP) Pulse Ox O2 Delivery O2 Flow Rate FiO2 12/21/20 11:10 98.8 83 18 169/93 (118) 96 Room Air 98.8 EKG: EKG: Sinus rhythm. Rate 75. Left axis deviation. Otherwise no acute ischemic changes. Normal intervals. [] Radiology/Procedures: Radiology/Procedures: [] Course & Med Decision Making: Course & Med Decision Making Pertinent Labs and Imaging studies reviewed. (See chart for details) Patient 55-year-old female with history of HTN, hypothyroidism who has had daily headaches since a fall with head strike in late November. She had negative CT imaging at that time. Presents today, because she has had increasing fatigue over the past several days without worsening in her headache or other neurologic symptoms. On arrival is afebrile, hemodynamically stable. Neurologic examination entirely intact as above. She is not on any blood thinning medications. Has not had recurrent head trauma. Discussed CT imaging, and that I estimate the chances of a delayed bleed is exceedingly low. We jointly decided that we would defer CT imaging today. I expressed that she would need to return to the emergency department if she were to develop new neurologic symptoms. Considered other causes for fatigue and she has no signs of anemia, no significant electrolyte abnormalities, normal kidney and liver function, normal TSH, nonischemic EKG, and no infectious symptoms. I did order a Covid swab, which is pending. Feel patient is safe for discharge with strict return precautions and PCP follow-up. Dragon Disclaimer: Dragon Disclaimer: This electronic medical record was generated, in whole or in part, using a voice recognition dictation system. Departure Departure Impression: Primary Impression: Fatigue Additional Impression: Concussion Disposition: 01 HOME / SELF CARE / HOMELESS Condition: STABLE Referrals: GARRETT TIM (PCP) Patient Instructions: Concussion and Brain Injury Additional Instructions: Your labs including cell counts, electrolytes, and TSH were normal today. With your normal neurologic examination and symptoms consistent with concussion, we did not do a CT scan. If your symptoms change in include confusion, worsening headaches, vision changes, speech difficulty, balance problems, weakness, or numbness please return to the emergency department as you may need a CT scan at that time. You have a Covid test pending. Results should be available in 24-48 hours. If you have not heard about your results you can call the emergency department. Please self isolate until you know the results of your test. ARINA HOWARD MD Dec 21, 2020 12:10
--- NOTE | 2020-12-21 18:51 | EKG ---
[facility] [address] [place] [id number] Test Date: 2020-12-21 Test Time: 11:34:56 Pat Name: NEVAEH LEVIN Department: Room: Gender: F Entrepreneur: : 1965 Requested By: ARINA HOWARD Order Number: [id number] Reading MD: Thanh Shah Measurements Intervals [place] Rate: 75 P: 47 [place]: 156 QRS: -13 QRSD: 94 T: 50 QT: 378 QTc: 425 Interpretive Statements SINUS RHYTHM LEFTWARD AXIS QRS(T) CONTOUR ABNORMALITY CONSIDER ANTEROSEPTAL MYOCARDIAL DAMAGE POSSIBLY ABNORMAL ECG RI6.01 No previous ECG available for comparison Electronically Signed On 12-23-2020 13:25:26 CDT by Thanh Shah
== END 2020-12-21 12:20 | disposition home or self-care (01) ==
LOC: ER 10:50
DX: S06.0X0A Concussion without loss of consciousness, initial encounter (principal); Z20.822 Contact with and (suspected) exposure to COVID-19; I10 Essential (primary) hypertension; E03.9 Hypothyroidism, unspecified; W18.09XA Striking against other object with subsequent fall, initial encounter; Y93.89 Activity, other specified; Y92.89 Other specified places as the place of occurrence of the external cause; Y99.8 Other external cause status
CPT/HCPCS: 36415; 80053; 84443; 85025; 93005; 99284; U0003; U0005